=== PATIENT | female | born 1955 | race Caucasian/White ===

== ENCOUNTER 2017-01-19 13:07 | Emergency (ER) | payer MEDICAID ==
--- NOTE | 2017-01-19 14:17 | EDM.PDOC ---
ED UPPER BACK/NECK PAIN/INJURY - General Chief Complaint: Back Pain or Injury Stated Complaint: SOB/RIGHT SIDE PAIN Time Seen by Provider: 01/19/17 13:14 Source of Information: Reports: Patient, RN notes reviewed - History of Present Illness INITIAL COMMENTS - FREE TEXT/NARRATIVE: 61 year old female comes in with back pain, L chest wall pain, dyspnea. Hx of COPD and chronic low back pain. More short of breath than usual the last few days. Has had increased pain L upper back and L chest wall worse with motion and with coughing. Not coughing more than usual, no fever or chills. Has rods in her back with hx of fusion many vertebrae of her thoracic spine. No recent fall or injury. - Related Data Allergies/ADRs: Allergies Allergy/AdvReac Type Severity Reaction Status Date / Time codeine AdvReac Vomiting Verified 09/13/15 13:05 Home Meds: Home Meds Albutero Inhaler. 2 puff INH ASDIRECTED PRN 02/28/14 [History] Metoprolol Succinate [Toprol XL] 50 mg PO BID 02/28/14 [History] Albuterol [Proventil Neb Soln] 2.5 mg NEB Q3H 07/12/15 [History] Zolpidem Tartrate [Ambien] 5 mg PO Q2D 07/12/15 [History] Albuterol/Ipratropium [DuoNeb 3.0-0.5 MG/3 ML] 3 ml NEB QID PRN #1 box 09/13/15 [Rx] Budesonide/Formoterol [Symbicort 160-4.5 MCG] 2 puff INH BID 01/19/17 [History] Past Medical History Cardiovascular History: Reports: Hypertension Respiratory History: Reports: Asthma, COPD Other Musculoskeletal History: Scoliosis, spinal fusion. - Past Surgical History Female Surgical History: Reports: Hysterectomy Social & Family History - Tobacco Use Smoking Status *Q: Current Every Day Smoker Years of Tobacco use: 45 Packs/Tins Daily: 0.7 - Caffeine Use Caffeine Use: Reports: Coffee, Soda, Tea - Alcohol Use Days Per Week of Alcohol Use: 0 - Recreational Drug Use Recreational Drug Use: No Drug Use in Last 12 Months: Yes Recreational Drug Type: Reports: Morphine, Oxycodone Recreational Drug Use Frequency: Daily ED ROS GENERAL - Review of Systems Review Of Systems: See Below Constitutional: Denies: fever, chills, diaphoresis HEENT: Denies: Sinus problem, Throat pain Respiratory: Reports: Shortness of Breath, Cough, Sputum (scant). Denies: Pleuritic Chest Pain, Hemoptysis Cardiovascular: Reports: Chest pain (L chest) GI/Abdominal: Denies: Abdominal pain, Nausea, Vomiting Musculoskeletal: Reports: other (chronic back pain). Denies: shoulder pain, arm pain Skin: Reports: no symptoms Neurological: Reports: No Symptoms ED EXAM, UPPER BACK/NECK PAIN - Physical Exam Exam: See Below General Appearance: alert, no apparent distress Eye Exam: bilateral eye: PERRL Nose Exam: normal inspection Throat/Mouth Exam: Normal inspection, Normal oropharynx Head Exam: atraumatic Neck Exam: full range of motion, other (no JVD) Cardiovascular/Respiratory: regular rate, rhythm. No: rales, rhonchi, accessory muscle use, wheezing GI/Abdominal: soft, non tender Back Exam: paraspinal tenderness (L mid back, no bruising or swelling), other ( also tender L lateral chest wall, no bruising or swelling present). No: vertebral tenderness Extremities: No: leg pain, redness Neurologic: no motor/sensory deficits Course - Vital Signs Last Recorded V/S: Last Vital Signs Temp 98.4 F 01/19/17 13:19 Pulse 91 01/19/17 13:19 Resp 20 01/19/17 13:19 BP 156/93 H 01/19/17 13:19 Pulse Ox 96 01/19/17 14:29 - Orders/Labs/Meds Orders: Active Orders 24 hr Category Date Time Status RT Aerosol Therapy [RC] ASDIRECTED Care 01/19/17 14:29 Active Ribs 2V w Chest Lt [CR] Stat Exams 01/19/17 13:44 Taken Thoracic Spine 2V [CR] Stat Exams 01/19/17 13:44 Taken Meds: Medications Discontinued Medications Generic Name Dose Route Start Last Admin Trade Name Freq PRN Reason Stop Dose Admin Albuterol 2.5 mg 01/19/17 14:29 01/19/17 14:39 Proventil Neb Soln NEB 01/19/17 14:30 2.5 mg ONETIME ONE Administration - Re-Assessments/Exams Free Text/Narrative Re-Assessment/Exam: 03/29/17 14:52 X rays of back show hardware present, severe scoliosis,osteoprosis, degenerative disease, no obvious fx, lungs are clear, no visible rib fx Departure - Departure Time of Disposition: 14:38 Disposition: Home, Self-Care 01 Condition: fair Clinical Impression: Chest wall pain Dyspnea Qualifiers: Dyspnea type: dyspnea on exertion Qualified Code(s): R06.09 - Other forms of dyspnea Back pain Qualifiers: Back pain location: thoracic back pain Chronicity: chronic Back pain laterality : midline Qualified Code(s): M54.6 - Pain in thoracic spine Referrals: Sumeet Garcia Jr, MD [Primary Care Provider] - Forms: ED Department Discharge Additional Instructions: rest back, no heavy lifting, alternate heat and ice as needed, tylenol 2 to 3 times daily as needed, Follow up clinic if not much better within 3 to 5 days as expected, return to ED as needed. - My Orders Last 24 Hours: My Active Orders 01/19/17 13:44 Ribs 2V w Chest Lt [CR] Stat Thoracic Spine 2V [CR] Stat 01/19/17 14:29 RT Aerosol Therapy [RC] ASDIRECTED - Assessment/Plan Last 24 Hours: My Active Orders 01/19/17 13:44 Ribs 2V w Chest Lt [CR] Stat Thoracic Spine 2V [CR] Stat 01/19/17 14:29 RT Aerosol Therapy [RC] ASDIRECTED
[2017-01-19] MEDS ORDERED: Albuterol 0.083% 2.5 MG/3 ML Neb Soln NEB ONE (14:29)
[2017-01-19 14:55] VITALS: BP 155/101
--- NOTE | 2017-01-19 15:53 | CR ---
Chest and left ribs: Frontal view of the chest was obtained as well as 3 additional views of the left ribs. Comparison: Previous chest x-ray of 09/13/15. Spinal fixation rods are seen. Scoliosis is present within the spine. Heart size is within normal limits. Tortuous thoracic aorta is seen. Lungs are clear. Bony structures are somewhat osteopenic. No discrete fracture or other left sided rib abnormality is appreciated. Impression: 1. Incidental findings. Nothing acute is seen. 2. No discrete left-sided rib abnormality is appreciated. Nondisplaced fracture could easily be missed. Diagnostic code #2
--- NOTE | 2017-01-19 15:53 | CR ---
Thoracic spine: AP and lateral views of the thoracic spine were obtained. Comparison: No previous thoracic spine study, study is compared to lateral chest x-ray and AP chest x-ray of 09/13/15. Scoliosis present within the spine. Orthopedic hardware is seen within the thoracic spine. Compression deformity is noted within the lower thoracic spine which is felt to be old. Nothing acute is appreciated. Impression: 1. Findings as described above. No appreciable change is seen when compared to prior chest x-ray of 09/13/15. Diagnostic code #2
== END 2017-01-19 14:50 | disposition home or self-care (01) ==
LOC: JD.ED 13:07
DX: R07.89 Other chest pain (principal); R06.09 Other forms of dyspnea; M54.6 Pain in thoracic spine; Z88.8 Allergy status to other drugs, medicaments and biological substances; Z79.899 Other long term (current) drug therapy; J44.9 Chronic obstructive pulmonary disease, unspecified; J45.909 Unspecified asthma, uncomplicated; I10 Essential (primary) hypertension; F17.200 Nicotine dependence, unspecified, uncomplicated
CPT/HCPCS: 71101-26-LT; 71101-LT; 72070; 72070-26; 94664; 99283; 99285-25

== ENCOUNTER 2018-04-01 00:45 | Emergency (ER) | payer MEDICAID ==
[2018-04-01 01:17] VITALS: BP 150/71
[2018-04-01] MEDS ORDERED: Albuterol/Ipratropium 3.0-0.5 MG/3 ML Neb Soln NEB ONE (03:01)
--- NOTE | 2018-04-01 03:03 | EDM.PDOC ---
ED HPI GENERAL MEDICAL PROBLEM - General Chief Complaint: Respiratory Problem Stated Complaint: COPD BREATHING ISSUES RELATED TOO AND MIGRAIN Time Seen by Provider: 04/01/18 02:42 Source of Information: Reports: Patient, Old Records History Limitations: Reports: No Limitations - History of Present Illness INITIAL COMMENTS - FREE TEXT/NARRATIVE: The patient states that she has COPD and has had shortness of breath on and off for 9 years, but that it has been worse over the past few years. She does not require home oxygen, but she does have a home nebulizer machine. She usually takes 6-8 albuterol treatments per day, as needed for shortness of breath. She states that she is often wheezing, including now, here, in the ED. She reports a dry cough that is chronic. No recent fever. No recent chest pain or palpitations. No recent nausea, vomiting, constipation, or diarrhea. The patient states that she came to the ED because she believes that hour nebulized treatments work better than hers at home. The patient states that her PCP is tawana Beaulieu, who she saw this past Tuesday , 03/29/2018. headache Pain Score (Numeric/FACES): 6 - Related Data Allergies Allergy/AdvReac Type Severity Reaction Status Date / Time codeine AdvReac Vomiting Verified 04/01/18 00:56 Home Meds: Home Meds Metoprolol Succinate [Toprol XL] 50 mg PO BID 02/28/14 [History] Albuterol [Proventil Neb Soln] 2.5 mg NEB Q3H 07/12/15 [History] Albuterol/Ipratropium [DuoNeb 3.0-0.5 MG/3 ML] 3 ml NEB QID PRN #1 box 09/13/15 [Rx] Budesonide/Formoterol [Symbicort 160-4.5 MCG] 2 puff INH BID 01/19/17 [History] Acetaminophen/oxyCODONE [Percocet 325-5 MG] 1 each PO QID 04/01/18 [History] Past Medical History Cardiovascular History: Reports: Hypertension Respiratory History: Reports: Asthma, COPD Other Musculoskeletal History: Scoliosis, spinal fusion. Neurological History: Reports: Headaches, Chronic Psychiatric History: Reports: Addiction - Past Surgical History Female Surgical History: Reports: Hysterectomy Social & Family History - Family History Family Medical History: Noncontributory - Tobacco Use Smoking Status *Q: Current Every Day Smoker Years of Tobacco use: 46 Packs/Tins Daily: 0.5 Packs/Tins Daily Comment: Down from 1 ppd - Caffeine Use Caffeine Use: Reports: Coffee - Alcohol Use Alcohol Use History: Yes Date/Time of Last Drink Comment: Sober since early - Recreational Drug Use Recreational Drug Use: Yes Drug Use in Last 12 Months: Yes Recreational Drug Type: Reports: Other (see below) (Opioids) - Living Situation & Occupation Living situation: Reports: , Alone Occupation: Unemployed ED ROS GENERAL - Review of Systems Review Of Systems: ROS reveals no pertinent complaints other than HPI. ED EXAM, GENERAL - Physical Exam Exam: See Below Exam Limited By: No Limitations General Appearance: Alert, WD/WN, No Apparent Distress Eye Exam: Bilateral Eye: Normal Inspection Ears: Normal External Exam, Hearing Grossly Normal Nose: Normal Inspection, No Blood Throat/Mouth: Normal Inspection, Normal Lips, Normal Voice, No Airway Compromise Head: Atraumatic, Normocephalic Neck: Normal Inspection, Full Range of Motion Respiratory/Chest: No Respiratory Distress, No Accessory Muscle Use, Decreased Breath Sounds, Wheezing (faint), Other (Overall fair air movement). No: Crackles, Rhonchi Cardiovascular: Normal Peripheral Pulses, Regular Rate, Rhythm, No Gallop, No JVD, No Murmur, No Rub Peripheral Pulses: 3+: Radial (L), Radial (R) GI/Abdominal: Normal Bowel Sounds, Soft, Non-Tender, No Organomegaly, No Distention, No Abnormal Bruit, No Mass, Other (Obese) (Female) Exam: Deferred Rectal (Female) Exam: Deferred Back Exam: Other (Scoliosis) Extremities: Normal Inspection, Normal Range of Motion, Normal Capillary Refill Neurological: Alert, Oriented, Normal Cognition, No Motor/Sensory Deficits Psychiatric: Normal Affect Skin Exam: Warm, Dry, Intact, Normal Color, No Rash Course - Vital Signs Last Recorded V/S: Last Vital Signs Temp 37.3 C 04/01/18 01:16 Pulse 73 04/01/18 01:16 Resp 18 04/01/18 01:16 BP 150/71 H 04/01/18 01:16 Pulse Ox 95 04/01/18 03:08 - Orders/Labs/Meds Orders: Active Orders 24 hr Category Date Time Status RT Aerosol Therapy [RC] ASDIRECTED Care 04/01/18 03:01 Active Meds: Medications Discontinued Medications Generic Name Dose Route Start Last Admin Trade Name Gee PRN Reason Stop Dose Admin Albuterol/Ipratropium 3 ml 04/01/18 03:01 04/01/18 03:06 Duoneb 3.0-0.5 Mg/3 Ml NEB 04/01/18 03:02 3 ml ONETIME ONE Administration - Re-Assessments/Exams Free Text/Narrative Re-Assessment/Exam: 04/01/18 03:02 The patient is here stating that she wants a neb treatment, and that our neb treatments are better than her neb treatments at home. I'm not sure that that is true, but I did order a DuoNeb. The patient also asked for something for pain, and told Kanika MCGOWAN that she was out of her Percocet. The patient has a long and well-documented history of opioid abuse, and I am suspicious that her main reason for coming to the ED is to seek pain medication. 04/01/18 03:39 I was informed by Kanika MCGOWAN that the patient is feeling better following her neb treatment, and would like to go home. I listened to her lungs, which found no different to me than prior to her neb treatment. The patient is somewhat chagrined that she did not get a pain shot. I explained to the patient that she has a well-documented history of opioid abuse, and that there is no indication for a narcotic injection at this time. The patient stated that she had gone to rehabilitation, and was over that problem, but then said that that was the reason that she came to the ER. She then left the ED without waiting for discharge papers. Departure - Departure Time of Disposition: 03:41 Disposition: Home, Self-Care 01 Condition: Good Clinical Impression: Drug-seeking behavior - Discharge Information Referrals: Sumeet Garcia Jr, MD [Primary Care Provider] - Forms: ED Department Discharge - My Orders Last 24 Hours: My Active Orders 04/01/18 03:01 RT Aerosol Therapy [RC] ASDIRECTED - Assessment/Plan Last 24 Hours: My Active Orders 04/01/18 03:01 RT Aerosol Therapy [RC] ASDIRECTED
== END 2018-04-01 03:40 | disposition home or self-care (01) ==
LOC: JD.ED 00:45
DX: J44.9 Chronic obstructive pulmonary disease, unspecified (principal); F17.210 Nicotine dependence, cigarettes, uncomplicated; Z79.899 Other long term (current) drug therapy; Z76.5 Malingerer [conscious simulation]
CPT/HCPCS: 94640; 99283; 99285-25

== ENCOUNTER 2019-07-05 21:16 | Emergency (ER) | payer MEDICAID ==
[2019-07-05 21:24] VITALS: BP 181/129; PULSE 95
[2019-07-05] MEDS ORDERED: Ketorolac 30 MG/ML SDV IVPUSH ONE (21:32)
[2019-07-05] MEDS ORDERED: Metoclopramide 10 MG/2 ML SDV IVPUSH ONE (21:32)
[2019-07-05] MEDS ORDERED: diphenhydrAMINE 50 MG/ML SDV IVPUSH ONE (21:32)
[2019-07-05] MEDS ORDERED: Sodium Chloride 0.9% 10 ML Syringe FLUSH PRN (21:32)
[2019-07-05] MEDS ORDERED: Sodium Chloride 0.9% 1,000 ML IV SCH (21:45)
--- NOTE | 2019-07-05 22:12 | EDM.PDOC ---
ED HPI GENERAL MEDICAL PROBLEM - General Chief Complaint: Headache Stated Complaint: HEADACHE Time Seen by Provider: 07/05/19 21:28 Source of Information: Reports: Patient, RN Notes Reviewed History Limitations: Reports: No Limitations - History of Present Illness INITIAL COMMENTS - FREE TEXT/NARRATIVE: Patient is a 63-year-old female who presents to the ED for evaluation of a headache. The patient states she has had this headache for about 1-1/2 days. She states that the pain is worse tonight, and also has some associated neck pain with this. Patient did try taking a half tablet of her Percocet for the pain but this has not provided much relief. She states this usually does provide relief. She states that the headache is typical for her, and she notes that sometimes they can just go away with sleep. She was seen at her doctor's office today for her blood pressure and had refills, but states they did not do anything for her headache. Patient denies any sinus congestion, cough, or cold. She further denies any nausea/vomiting/diarrhea, chest pain, or shortness of breath. Headache Pain Score (Numeric/FACES): 8 - Related Data Allergies Allergy/AdvReac Type Severity Reaction Status Date / Time codeine AdvReac Vomiting Verified 07/05/19 21:24 Home Meds: Home Meds Metoprolol Succinate [Toprol XL] 50 mg PO BID 02/28/14 [History] Albuterol [Proventil Neb Soln] 2.5 mg NEB Q3H 07/12/15 [History] Budesonide/Formoterol [Symbicort 160-4.5 MCG] 2 puff INH BID 01/19/17 [History] ALPRAZolam [Xanax] 0.5 mg PO DAILY 06/03/19 [History] Acetaminophen/oxyCODONE [Percocet 325-5 MG] 1 tab PO Q6H PRN #4 tab 06/04/19 [Rx ] Past Medical History HEENT History: Reports: Impaired Vision Cardiovascular History: Reports: Hypertension Respiratory History: Reports: Asthma, COPD Gastrointestinal History: Reports: None [employer] MANAGER History: Reports: None Musculoskeletal History: Reports: Back Pain, Chronic Other Musculoskeletal History: Scoliosis, spinal fusion. Neurological History: Reports: Headaches, Chronic, Migraines Psychiatric History: Reports: Addiction, Anxiety Endocrine/Metabolic History: Reports: None Hematologic History: Reports: None Immunologic History: Reports: None Oncologic (Cancer) History: Reports: None Dermatologic History: Reports: None - Infectious Disease History Infectious Disease History: Reports: None - Past Surgical History Female Surgical History: Reports: Hysterectomy Neurological Surgical History: Reports: Scoliosis, Spinal Fusion Social & Family History - Family History Family Medical History: Noncontributory - Tobacco Use Smoking Status *Q: Current Every Day Smoker Years of Tobacco use: 45 Packs/Tins Daily: 0.5 - Caffeine Use Caffeine Use: Reports: Coffee - Recreational Drug Use Recreational Drug Use: No - Living Situation & Occupation Living situation: Reports: , Alone Occupation: Unemployed ED ROS GENERAL - Review of Systems Review Of Systems: See Below Constitutional: Denies: Fever, Chills, Weakness HEENT: Reports: No Symptoms Respiratory: Denies: Shortness of Breath Cardiovascular: Denies: Chest Pain Endocrine: Reports: No Symptoms GI/Abdominal: Denies: Nausea, Vomiting : Reports: No Symptoms Musculoskeletal: Reports: Neck Pain Skin: Reports: No Symptoms Neurological: Reports: Headache Psychiatric: Reports: No Symptoms Hematologic/Lymphatic: Reports: No Symptoms - Physical Exam Exam: See Below Exam Limited By: No Limitations General Appearance: Alert, WD/WN, No Apparent Distress (pt appears to be uncomfortable on initial exam. She is in a darkened room) Eye Exam: Bilateral Eye: EOMI, Normal Inspection, PERRL Throat/Mouth: Normal Inspection, Normal Lips, Normal Teeth, Normal Gums, Normal Oropharynx, Normal Voice, No Airway Compromise Head Exam: Atraumatic, Normocephalic Neck: Normal Inspection, Supple, Non-Tender, Full Range of Motion Respiratory/Chest: No Respiratory Distress, Lungs Clear, Normal Breath Sounds, No Accessory Muscle Use, Chest Non-Tender Cardiovascular: Normal Peripheral Pulses, Regular Rate, Rhythm, No Murmur GI/Abdominal: Normal Bowel Sounds, Soft, Non-Tender, No Distention, No Mass Neuro Exam (Abbreviated): Alert, Oriented, Normal Cognition, No Motor/Sensory Deficits Extremities: Normal Inspection, Normal Capillary Refill Psychiatric: Normal Affect, Normal Mood Skin Exam: Warm, Dry, Intact, Normal Color, No Rash Course - Vital Signs Last Recorded V/S: Last Vital Signs Temp 97.6 F 07/05/19 21:21 Pulse 95 07/05/19 21:21 Resp 16 07/05/19 21:21 BP 181/129 H 07/05/19 21:21 Pulse Ox 97 07/05/19 21:21 - Orders/Labs/Meds Orders: Active Orders 24 hr Category Date Time Status Peripheral IV Care [RC] . DIRECTED Care 07/05/19 21:32 Active Sodium Chloride 0.9% [Normal Saline] 1,000 ml Med 07/05/19 21:45 Active IV ASDIRECTED Sodium Chloride 0.9% [Saline Flush] Med 07/05/19 21:32 Active 10 ml FLUSH ASDIRECTED PRN Peripheral IV Insertion Adult [OM.PC] Routine Oth 07/05/19 21:32 Ordered Medication Orders Sodium Chloride (Normal Saline) 1,000 mls @ 125 mls/hr IV ASDIRECTED NASH Last Admin: 07/05/19 21:46 Dose: 125 mls/hr Sodium Chloride (Saline Flush) 10 ml FLUSH ASDIRECTED PRN PRN Reason: Keep Vein Open Last Admin: 07/05/19 21:49 Dose: 10 ml Meds: Medications Generic Name Dose Route Start Last Admin Trade Name Freq PRN Reason Stop Dose Admin Sodium Chloride 1,000 mls @ 125 mls/hr 07/05/19 21:45 07/05/19 21:46 Normal Saline IV 125 mls/hr ASDIRECTED NASH Administration Sodium Chloride 10 ml 07/05/19 21:32 07/05/19 21:49 Saline Flush FLUSH 10 ml ASDIRECTED PRN Administration Keep Vein Open Discontinued Medications Generic Name Dose Route Start Last Admin Trade Name Freq PRN Reason Stop Dose Admin Diphenhydramine HCl 25 mg 07/05/19 21:32 07/05/19 21:47 Benadryl IVPUSH 07/05/19 21:33 25 mg ONETIME ONE Administration Ketorolac Tromethamine 30 mg 07/05/19 21:32 07/05/19 21:48 Toradol IVPUSH 07/05/19 21:33 30 mg ONETIME ONE Administration Metoclopramide HCl 10 mg 07/05/19 21:32 07/05/19 21:46 Reglan IVPUSH 07/05/19 21:33 10 mg ONETIME ONE Administration - Re-Assessments/Exams Free Text/Narrative Re-Assessment/Exam: 07/05/19 22:19 Patient presents to the ED for a headache, I did give her 30 mg IV Toradol, 25 mg Benadryl, and 10 mg Reglan for initial management. Patient states she's had no relief from this, I did review her old records and she does have chronic daily narcotic use, I will provide her with 1 mg Dilaudid for further pain relief and discharge her home. She states she will be able to get her Percocet refilled from Dr. Garcia tomorrow. Departure - Departure Time of Disposition: 22:21 Disposition: Home, Self-Care 01 Condition: Fair Clinical Impression: Headache around the eyes - Discharge Information *PRESCRIPTION DRUG MONITORING PROGRAM REVIEWED*: No *COPY OF PRESCRIPTION DRUG MONITORING REPORT IN PATIENT RONNI: No Instructions: General Headache Without Cause, [id number] Referrals: Sumeet Garcia Jr, MD [Primary Care Provider] - Forms: ED Department Discharge Additional Instructions: You were evaluated in the ED for your headache. You were given a combination of medications and IV fluid for management. This did seem to provide you pretty good relief of your symptoms. Recommend that you go home and rest in a quiet darkened room. Try also to keep well hydrated. Please return to the ED if your symptoms should change or worsen. - My Orders Last 24 Hours: My Active Orders 07/05/19 21:32 Peripheral IV Care [RC] . DIRECTED Sodium Chloride 0.9% [Saline Flush] 10 ml FLUSH ASDIRECTED PRN Peripheral IV Insertion Adult [OM.PC] Routine 07/05/19 21:45 Sodium Chloride 0.9% [Normal Saline] 1,000 ml IV ASDIRECTED - Assessment/Plan Last 24 Hours: My Active Orders 07/05/19 21:32 Peripheral IV Care [RC] . DIRECTED Sodium Chloride 0.9% [Saline Flush] 10 ml FLUSH ASDIRECTED PRN Peripheral IV Insertion Adult [OM.PC] Routine 07/05/19 21:45 Sodium Chloride 0.9% [Normal Saline] 1,000 ml IV ASDIRECTED
[2019-07-05] MEDS ORDERED: HYDROmorphone 1 MG/ML Syringe IVPUSH ONE (22:20)
== END 2019-07-05 22:51 | disposition home or self-care (01) ==
LOC: JD.ED 21:16
DX: R51 Headache (principal); I10 Essential (primary) hypertension; F17.210 Nicotine dependence, cigarettes, uncomplicated; Z88.5 Allergy status to narcotic agent
CPT/HCPCS: 96361; 96374; 96375; 99283; J1170; J1200; J1885; J2765; J7040; 99284

== ENCOUNTER 2019-07-30 15:14 | Emergency (ER) | payer MEDICAID ==
[2019-07-30 15:44] VITALS: BP 183/107; PULSE 98
[2019-07-30] MEDS ORDERED: HYDROmorphone 1 MG/ML Syringe IM ONE (16:16)
[2019-07-30] MEDS ORDERED: Ketorolac 60 MG/2 ML SDV IM ONE (16:16)
--- NOTE | 2019-07-30 16:22 | EDM.PDOC ---
ED HPI GENERAL MEDICAL PROBLEM - General Chief Complaint: Headache Stated Complaint: HEADACHE Time Seen by Provider: 07/30/19 15:54 Source of Information: Reports: Patient History Limitations: Reports: No Limitations - History of Present Illness INITIAL COMMENTS - FREE TEXT/NARRATIVE: The patient presents with head and neck pain. This started yesterday. She has a bad neck with multiple surgeries. She is out of her percocet. She sees Dr Garcia on . She has no fever, chills, cough, chest pain or shortness of breath. She has no numbness or weakness. Onset: Gradual Duration: Day(s): (Yesterday) Location: Reports: Head, Neck Quality: Reports: Sharp Severity: Severe Improves with: Reports: None Worsens with: Reports: None Associated Symptoms: Reports: Headaches. Denies: Chest Pain, Cough, Fever/ Chills, Nausea/Vomiting, Shortness of Breath, Weakness Headache Pain Score (Numeric/FACES): 8 - Related Data Allergies Allergy/AdvReac Type Severity Reaction Status Date / Time codeine AdvReac Vomiting Verified 07/30/19 15:44 Home Meds: Home Meds Metoprolol Succinate [Toprol XL] 50 mg PO BID 02/28/14 [History] Albuterol [Proventil Neb Soln] 2.5 mg NEB Q3H 07/12/15 [History] Budesonide/Formoterol [Symbicort 160-4.5 MCG] 2 puff INH BID 01/19/17 [History] ALPRAZolam [Xanax] 0.5 mg PO DAILY 06/03/19 [History] Acetaminophen/oxyCODONE [Percocet 325-5 MG] 1 tab PO Q6H PRN #4 tab 06/04/19 [Rx ] Past Medical History HEENT History: Reports: Impaired Vision Cardiovascular History: Reports: Hypertension Respiratory History: Reports: Asthma, COPD Gastrointestinal History: Reports: None 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 Neurological History: Reports: Headaches, Chronic, Migraines Psychiatric History: Reports: Addiction, Anxiety Endocrine/Metabolic History: Reports: None Hematologic History: Reports: None Immunologic History: Reports: None Oncologic (Cancer) History: Reports: None Dermatologic History: Reports: None - Infectious Disease History Infectious Disease History: Reports: None - Past Surgical History Female Surgical History: Reports: Hysterectomy Neurological Surgical History: Reports: Scoliosis, Spinal Fusion Social & Family History - Family History Family Medical History: Noncontributory - Tobacco Use Smoking Status *Q: Never Smoker - Caffeine Use Caffeine Use: Reports: None - Recreational Drug Use Recreational Drug Use: No - Living Situation & Occupation Living situation: Reports: , Alone Occupation: Unemployed ED ROS GENERAL - Review of Systems Review Of Systems: See Below Constitutional: Reports: No Symptoms HEENT: Reports: No Symptoms Respiratory: Reports: No Symptoms Cardiovascular: Reports: No Symptoms Endocrine: Reports: No Symptoms GI/Abdominal: Reports: No Symptoms : Reports: No Symptoms Musculoskeletal: Reports: Neck Pain Neurological: Reports: Headache - Physical Exam Exam: See Below Exam Limited By: No Limitations General Appearance: Alert, No Apparent Distress Ears: Normal External Exam Nose: Normal Inspection Head Exam: Atraumatic, Normocephalic Neck: Supple, Tender Lateral, Tender Midline Respiratory/Chest: No Respiratory Distress, Lungs Clear, Normal Breath Sounds Cardiovascular: Regular Rate, Rhythm, No Edema, No Murmur GI/Abdominal: Soft, Non-Tender, No Organomegaly, No Mass Neuro Exam (Abbreviated): Alert, Oriented, No Motor/Sensory Deficits Course - Vital Signs Last Recorded V/S: Last Vital Signs Temp 98.9 F 07/30/19 15:42 Pulse 98 07/30/19 15:42 Resp 20 07/30/19 15:42 BP 183/107 H 07/30/19 15:42 Pulse Ox 94 L 07/30/19 15:42 - Orders/Labs/Meds Orders: Active Orders 24 hr Category Date Time Status HYDROmorphone [Dilaudid] Med 07/30/19 16:16 Once 1 mg IM ONETIME ONE Ketorolac [Toradol] Med 07/30/19 16:16 Once 60 mg IM ONETIME ONE - Re-Assessments/Exams Free Text/Narrative Re-Assessment/Exam: 07/30/19 16:19 I ordered toradol and dilaudid shots and I will discharge her home. Departure - Departure Time of Disposition: 16:20 Disposition: Home, Self-Care 01 Condition: Good Clinical Impression: Neck pain Headache Qualifiers: Headache type: tension-type Headache chronicity pattern: acute headache Intractability: not intractable Qualified Code(s): G44.209 - Tension-type headache, unspecified, not intractable - Discharge Information *PRESCRIPTION DRUG MONITORING PROGRAM REVIEWED*: No *COPY OF PRESCRIPTION DRUG MONITORING REPORT IN PATIENT RONNI: No Referrals: Sumeet Garcia Jr, MD [Primary Care Provider] - 3 Days Additional Instructions: Take your medication as prescribed. Follow up with Dr Garcia. Please return if you are worse. - My Orders Last 24 Hours: My Active Orders 07/30/19 16:16 HYDROmorphone [Dilaudid] 1 mg IM ONETIME ONE Ketorolac [Toradol] 60 mg IM ONETIME ONE - Assessment/Plan Last 24 Hours: My Active Orders 07/30/19 16:16 HYDROmorphone [Dilaudid] 1 mg IM ONETIME ONE Ketorolac [Toradol] 60 mg IM ONETIME ONE
== END 2019-07-30 17:00 | disposition home or self-care (01) ==
LOC: JD.ED 15:14
DX: M54.2 Cervicalgia (principal); R51 Headache; I10 Essential (primary) hypertension; J44.9 Chronic obstructive pulmonary disease, unspecified; F41.9 Anxiety disorder, unspecified; Z88.5 Allergy status to narcotic agent; Z79.899 Other long term (current) drug therapy; Z79.51 Long term (current) use of inhaled steroids
CPT/HCPCS: 96372; 99283; J1170; J1885

== ENCOUNTER 2019-08-27 14:17 | Emergency (ER) | payer MEDICAID ==
[2019-08-27 14:19] VITALS: BP 161/101; PULSE 85
[2019-08-27] MEDS ORDERED: HYDROmorphone 1 MG/ML Syringe IM ONE (14:41)
[2019-08-27] MEDS ORDERED: Ketorolac 60 MG/2 ML SDV IM ONE (14:41)
--- NOTE | 2019-08-27 14:50 | EDM.PDOC ---
ED HPI GENERAL MEDICAL PROBLEM - General Chief Complaint: Back Pain or Injury Stated Complaint: [facility] Time Seen by Provider: 08/27/19 14:19 Source of Information: Reports: Patient History Limitations: Reports: No Limitations - History of Present Illness INITIAL COMMENTS - FREE TEXT/NARRATIVE: The patient presents by [facility] for a headache and low back pain. She has chronic back pain with scoliosis with a few surgeries. She has no fever or chills. She has no numbness or weakness. She say she is out of her percocet. Onset: Gradual Duration: Day(s): Quality: Reports: Sharp Severity: Severe Improves with: Reports: Immobilization Worsens with: Reports: Movement Associated Symptoms: Reports: Headaches. Denies: Chest Pain, Cough, Fever/ Chills, Nausea/Vomiting, Shortness of Breath Back Pain Score (Numeric/FACES): 10 - Related Data Allergies Allergy/AdvReac Type Severity Reaction Status Date / Time codeine AdvReac Vomiting Verified 07/30/19 15:44 Home Meds: Home Meds Metoprolol Succinate [Toprol XL] 50 mg PO BID 02/28/14 [History] Albuterol [Proventil Neb Soln] 2.5 mg NEB Q3H 07/12/15 [History] Budesonide/Formoterol [Symbicort 160-4.5 MCG] 2 puff INH BID 01/19/17 [History] ALPRAZolam [Xanax] 0.5 mg PO DAILY 06/03/19 [History] oxyCODONE HCl/Acetaminophen [Percocet 5-325 mg Tablet] 1 - 2 each PO Q6HR PRN # 20 tablet 07/30/19 [Rx] Past Medical History HEENT History: Reports: Impaired Vision Cardiovascular History: Reports: Hypertension Respiratory History: Reports: Asthma, COPD Gastrointestinal History: Reports: None 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 Neurological History: Reports: Headaches, Chronic, Migraines Psychiatric History: Reports: Addiction, Anxiety Endocrine/Metabolic History: Reports: None Hematologic History: Reports: None Immunologic History: Reports: None Oncologic (Cancer) History: Reports: None Dermatologic History: Reports: None - Infectious Disease History Infectious Disease History: Reports: None - Past Surgical History Female Surgical History: Reports: Hysterectomy Neurological Surgical History: Reports: Scoliosis, Spinal Fusion Social & Family History - Family History Family Medical History: Noncontributory - Tobacco Use Smoking Status *Q: Current Every Day Smoker Years of Tobacco use: 40 Packs/Tins Daily: 1 - Caffeine Use Caffeine Use: Reports: Coffee, Soda - Recreational Drug Use Recreational Drug Use: No - Living Situation & Occupation Living situation: Reports: , Alone Occupation: Unemployed ED ROS GENERAL - Review of Systems Review Of Systems: See Below Constitutional: Reports: No Symptoms HEENT: Reports: No Symptoms Respiratory: Reports: No Symptoms Cardiovascular: Reports: No Symptoms Endocrine: Reports: No Symptoms GI/Abdominal: Reports: No Symptoms : Reports: No Symptoms Musculoskeletal: Reports: Back Pain Neurological: Reports: Headache ED EXAM,LOWER BACK PAIN/INJURY - Physical Exam Exam: See Below Exam Limited By: No Limitations General Appearance: Alert, No Apparent Distress Ears: Normal External Exam Nose: Normal Inspection Head: Atraumatic, Normocephalic Neck: Normal Inspection Respiratory/Chest: No Respiratory Distress, Lungs Clear, Normal Breath Sounds Cardiovascular: Regular Rate, Rhythm, No Edema, No Murmur GI/Abdominal: Soft, Non-Tender, No Organomegaly, No Mass Extremities: Normal Inspection Course - Vital Signs Last Recorded V/S: Last Vital Signs Temp 97.9 F 08/27/19 14:18 Pulse 85 08/27/19 14:18 Resp 20 08/27/19 14:18 BP 161/101 H 08/27/19 14:18 Pulse Ox 97 08/27/19 14:18 - Orders/Labs/Meds Meds: Medications Discontinued Medications Generic Name Dose Route Start Last Admin Trade Name Gee PRN Reason Stop Dose Admin Hydromorphone HCl 1 mg 08/27/19 14:41 Dilaudid IM 08/27/19 14:42 ONETIME ONE Ketorolac Tromethamine 60 mg 08/27/19 14:41 Toradol IM 08/27/19 14:42 ONETIME ONE - Re-Assessments/Exams Free Text/Narrative Re-Assessment/Exam: 08/27/19 14:52 I ordered a shot of dilaudid 1mg IM and toradol 60mg IM. I will discharge her home. Departure - Departure Time of Disposition: 14:55 Disposition: Home, Self-Care 01 Condition: Good Clinical Impression: Chronic back pain Headache Qualifiers: Headache type: tension-type Headache chronicity pattern: acute headache Intractability: not intractable Qualified Code(s): G44.209 - Tension-type headache, unspecified, not intractable - Discharge Information *PRESCRIPTION DRUG MONITORING PROGRAM REVIEWED*: No *COPY OF PRESCRIPTION DRUG MONITORING REPORT IN PATIENT RONNI: No Referrals: Sumeet Garcia Jr, MD [Primary Care Provider] - 1 Week Additional Instructions: Go home and take your medication as prescribed. Follow up with your doctor.
[2019-08-27] MEDS ORDERED: Albuterol/Ipratropium 3.0-0.5 MG/3 ML Neb Soln NEB ONE (15:10)
== END 2019-08-27 15:27 | disposition home or self-care (01) ==
LOC: SUPCPDRO 14:17 → JD.ED 14:17
DX: M54.5 Low back pain (principal); G89.29 Other chronic pain; G44.209 Tension-type headache, unspecified, not intractable; I10 Essential (primary) hypertension; J44.9 Chronic obstructive pulmonary disease, unspecified; F41.9 Anxiety disorder, unspecified; F17.210 Nicotine dependence, cigarettes, uncomplicated; Z79.51 Long term (current) use of inhaled steroids; Z79.899 Other long term (current) drug therapy; Z88.5 Allergy status to narcotic agent
CPT/HCPCS: 94640; 96372; 99284; J1170; J1885; 99283; J7620-GY

== ENCOUNTER 2019-10-26 02:23 | Emergency (ER) | payer MEDICAID ==
[2019-10-26 02:31] VITALS: BP 147/89; PULSE 81
--- NOTE | 2019-10-26 02:42 | EDM.PDOC ---
ED HPI GENERAL MEDICAL PROBLEM - General Chief Complaint: Drug or Alcohol Abuse Stated Complaint: [facility] Time Seen by Provider: 10/26/19 02:32 - History of Present Illness INITIAL COMMENTS - FREE TEXT/NARRATIVE: 64-year-old female presents the emergency room with a headache and neck pain. Patient's been out of her Percocet for a day now. She is scheduled to see her primary care physician at 830 this morning to get her refills. The patient is been under more stress than normal. She also takes Xanax 0.5 mg she is taken 3 of these over the last 24 hours. Patient has long history of back and neck problems relating to severe scoliosis. Back Pain Score (Numeric/FACES): 10 - Related Data Allergies Allergy/AdvReac Type Severity Reaction Status Date / Time codeine AdvReac Vomiting Verified 10/26/19 02:27 Home Meds: Home Meds Metoprolol Succinate [Toprol XL] 50 mg PO BID 02/28/14 [History] Albuterol [Proventil Neb Soln] 2.5 mg NEB Q3H 07/12/15 [History] Budesonide/Formoterol [Symbicort 160-4.5 MCG] 2 puff INH BID 01/19/17 [History] ALPRAZolam [Xanax] 0.5 mg PO DAILY 06/03/19 [History] oxyCODONE HCl/Acetaminophen [Percocet 5-325 mg Tablet] 1 - 2 each PO Q6HR PRN # 20 tablet 07/30/19 [Rx] Past Medical History HEENT History: Reports: Impaired Vision Cardiovascular History: Reports: Hypertension Respiratory History: Reports: Asthma, COPD Gastrointestinal History: Reports: None 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 Neurological History: Reports: Headaches, Chronic, Migraines Psychiatric History: Reports: Addiction, Anxiety Endocrine/Metabolic History: Reports: None Hematologic History: Reports: None Immunologic History: Reports: None Oncologic (Cancer) History: Reports: None Dermatologic History: Reports: None - Infectious Disease History Infectious Disease History: Reports: None - Past Surgical History Female Surgical History: Reports: Hysterectomy Neurological Surgical History: Reports: Scoliosis, Spinal Fusion Social & Family History - Family History Family Medical History: Noncontributory - Caffeine Use Caffeine Use: Reports: Coffee, Soda - Living Situation & Occupation Living situation: Reports: , Alone Occupation: Unemployed ED ROS GENERAL - Review of Systems Review Of Systems: See Below Constitutional: Reports: No Symptoms HEENT: Reports: No Symptoms Respiratory: Reports: No Symptoms Cardiovascular: Reports: No Symptoms Endocrine: Reports: No Symptoms GI/Abdominal: Reports: No Symptoms Musculoskeletal: Reports: Neck Pain, Back Pain Skin: Reports: No Symptoms Neurological: Reports: No Symptoms ED EXAM, GENERAL - Physical Exam Exam: See Below Exam Limited By: No Limitations General Appearance: Alert, No Apparent Distress Eye Exam: Bilateral Eye: Normal Inspection Head: Atraumatic, Normocephalic, Other (Tenderness at the base of her skull at the neck worse on the left side compared to the right this is consistent with the pain that brought her in) Neck: Other (She has significant spasm in the left paraspinous musculature if this seems to mimic the pain that brought her in). No: Lymphadenopathy (L), Lymphadenopathy (R), Tender Midline Respiratory/Chest: No Respiratory Distress, Lungs Clear, Normal Breath Sounds Cardiovascular: Regular Rate, Rhythm, No Edema, No Murmur Back Exam: Other. No: Vertebral Tenderness Extremities: Normal Inspection, No Pedal Edema Course - Vital Signs Last Recorded V/S: Last Vital Signs Temp 36.2 C 10/26/19 02:28 Pulse 81 10/26/19 02:28 Resp 18 10/26/19 02:28 BP 147/89 H 10/26/19 02:28 Pulse Ox 95 10/26/19 02:28 - Orders/Labs/Meds Meds: Medications Discontinued Medications Generic Name Dose Route Start Last Admin Trade Name Gee PRN Reason Stop Dose Admin Hydromorphone HCl 1 mg 10/26/19 02:45 10/26/19 02:52 Dilaudid IM 10/26/19 02:46 1 mg ONETIME ONE Administration - Re-Assessments/Exams Free Text/Narrative Re-Assessment/Exam: 10/26/19 03:31 Patient is doing much better. I had a long talk with the patient regarding why it is important to get all her medications for chronic pain from the same provider and from the same pharmacy and what most pain contract say and mentioned that it is not the emergency room's role to provide chronic pain medication. She voices understanding. Departure - Departure Time of Disposition: 03:32 Disposition: Admitted As Inpatient 66 Clinical Impression: Tension type headache, Chronic neck and back pain Clinical Impression: (Ruled Out): Chronic neck pain - Discharge Information Referrals: Sumeet Garcia Jr, MD [Primary Care Provider] - Additional Instructions: Return to the emergency room with any questions problems or worsening symptoms. Follow-up with your regular physician later today as scheduled. Remember the chronic pain management should only be done in the clinic. Sepsis Event Note - Evaluation Sepsis Screening Result: No Definite Risk - Focused Exam Vital Signs: Vital Signs Temp Pulse Resp BP Pulse Ox 10/26/19 02:28 36.2 C 81 18 147/89 H 95 Date Exam was Performed: 10/26/19 Time Exam was Performed: 03:31
[2019-10-26] MEDS ORDERED: HYDROmorphone 1 MG/ML Syringe IM ONE (02:45)
== END 2019-10-26 04:15 | disposition home or self-care (01) ==
LOC: SUPCPDRO 02:23 → JD.ED 02:23
DX: G44.209 Tension-type headache, unspecified, not intractable (principal); M54.2 Cervicalgia; M54.9 Dorsalgia, unspecified; G89.29 Other chronic pain; I10 Essential (primary) hypertension; J44.9 Chronic obstructive pulmonary disease, unspecified; F41.9 Anxiety disorder, unspecified; Z88.5 Allergy status to narcotic agent; Z79.899 Other long term (current) drug therapy
CPT/HCPCS: 96372; 99285; J1170; 99283

== ENCOUNTER 2019-12-04 11:20 | Emergency (ER) | payer MEDICAID ==
[2019-12-04] MEDS ORDERED: HYDROmorphone 1 MG/ML Syringe IM ONE (12:50)
--- NOTE | 2019-12-04 12:58 | EDM.PDOC ---
ED HPI GENERAL MEDICAL PROBLEM - General Chief Complaint: Respiratory Problem Stated Complaint: SOB,WHOLE PAIN HURTS Time Seen by Provider: 12/04/19 12:02 Source of Information: Reports: Patient, RN Notes Reviewed History Limitations: Reports: No Limitations - History of Present Illness INITIAL COMMENTS - FREE TEXT/NARRATIVE: Patient is a 64-year-old female who presents to the ED for the evaluation of a couple complaints. She states that she has chronic neck pain, and she normally takes Percocet 5/325, 4 times a day. She notes that she has a appointment with her primary care provider on Tuesday, and states she has subsequently run out of Percocet, as he gave her a smaller amount of pills this last month for some reason. She also states that she has a history of lung issues or COPD-like illness, and does not believe her neb machine is working appropriately as she does not think it is blowing out meds like it used to. She is going to take this to her doctor on Tuesday and have him give her a new one as well. She is complaining mostly of the same chronic neck pain, this is not different than her normal neck pain, her O2 sats are 97% on room air at this time, and she is not having any sort of respiratory distress at this time. Neck Pain Score (Numeric/FACES): 9 - Related Data Allergies Allergy/AdvReac Type Severity Reaction Status Date / Time codeine AdvReac Vomiting Verified 12/04/19 11:43 Home Meds: Home Meds Metoprolol Succinate [Toprol XL] 50 mg PO BID 02/28/14 [History] Albuterol [Proventil Neb Soln] 2.5 mg NEB Q3H PRN 07/12/15 [History] Budesonide/Formoterol [Symbicort 160-4.5 MCG] 2 puff INH BID 01/19/17 [History] ALPRAZolam [Xanax] 0.5 mg PO DAILY 06/03/19 [History] oxyCODONE HCl/Acetaminophen [Percocet 5-325 mg Tablet] 1 - 2 each PO Q6HR PRN # 20 tablet 07/30/19 [Rx] Past Medical History HEENT History: Reports: Impaired Vision Cardiovascular History: Reports: Hypertension Respiratory History: Reports: Asthma, COPD Musculoskeletal History: Reports: Back Pain, Chronic, Neck Pain, Chronic Other Musculoskeletal History: Scoliosis, spinal fusion. Neurological History: Reports: Headaches, Chronic, Migraines Psychiatric History: Reports: Addiction, Anxiety - Past Surgical History Female Surgical History: Reports: Hysterectomy Neurological Surgical History: Reports: Scoliosis, Spinal Fusion Social & Family History - Family History Family Medical History: Noncontributory - Tobacco Use Smoking Status *Q: Current Every Day Smoker Years of Tobacco use: 25 Packs/Tins Daily: 1 - Caffeine Use Caffeine Use: Reports: Coffee - Recreational Drug Use Recreational Drug Use: No - Living Situation & Occupation Living situation: Reports: , Alone Occupation: Unemployed ED ROS GENERAL - Review of Systems Review Of Systems: See Below Constitutional: Denies: Fever, Chills Respiratory: Reports: Shortness of Breath. Denies: Cough Cardiovascular: Denies: Chest Pain GI/Abdominal: Denies: Nausea, Vomiting Musculoskeletal: Reports: Neck Pain Neurological: Denies: Numbness, Tingling ED EXAM, GENERAL - Physical Exam Exam: See Below Exam Limited By: No Limitations General Appearance: Alert, WD/WN, No Apparent Distress Eye Exam: Bilateral Eye: EOMI, Normal Inspection, PERRL Neck: Normal Inspection, Supple, Tender Lateral (in the exact same spot she normally has pain) Respiratory/Chest: No Respiratory Distress, Lungs Clear, Normal Breath Sounds, No Accessory Muscle Use, Chest Non-Tender Cardiovascular: Normal Peripheral Pulses, Regular Rate, Rhythm, No Murmur Peripheral Pulses: 3+: Radial (L), Radial (R) Extremities: Normal Inspection, Normal Capillary Refill Neurological: Alert, Oriented, Normal Cognition, No Motor/Sensory Deficits Psychiatric: Tearful (pt states that she has increased stress in her life at this time, her mother recently 2 months ago, she is trying to find a new place to live, and her daughter got in a car wreck and is a paraplegic now and that she lives in [place], and she cannot see her daughter like she wants.) Skin Exam: Warm, Dry, Intact, Normal Color, No Rash Course - Vital Signs Last Recorded V/S: Last Vital Signs Temp 98.1 F 12/04/19 12:12 Pulse 78 12/04/19 14:00 Resp 13 12/04/19 12:12 BP 120/70 12/04/19 14:00 Pulse Ox 98 12/04/19 14:00 - Orders/Labs/Meds Meds: Medications Discontinued Medications Generic Name Dose Route Start Last Admin Trade Name Gee PRN Reason Stop Dose Admin Hydromorphone HCl 1 mg 12/04/19 12:50 12/04/19 13:26 Dilaudid IM 12/04/19 12:51 1 mg ONETIME ONE Administration - Re-Assessments/Exams Free Text/Narrative Re-Assessment/Exam: 12/04/19 12:58 Patient presents to the ED for her chronic neck pain and her shortness of breath. Patient states that the pain has been the most bothersome, and she states that she ran out of her Percocet pills 2 days ago. She normally got 120 count from month use, but this last prescription was only 112 for some reason. I did order a milligram of Dilaudid for management today, and will try to get her some tablets to go through to see her primary care on Tuesday. 12/04/19 13:49 Patient received pretty good relief from the medication given. Plan for discharge is as above. Departure - Departure Time of Disposition: 13:49 Disposition: Home, Self-Care 01 Condition: Fair Clinical Impression: Chronic neck pain - Discharge Information *PRESCRIPTION DRUG MONITORING PROGRAM REVIEWED*: Yes *COPY OF PRESCRIPTION DRUG MONITORING REPORT IN PATIENT RONNI: No Instructions: Neck Exercises Referrals: Sumeet Garcia Jr, MD [Primary Care Provider] - Forms: ED Department Discharge Additional Instructions: You were evaluated in the ER today regarding your neck pain and shortness of breath. You were given an injection of Dilaudid which seemed to help provide you pain relief in your neck. You were given a prescription for 10 tablets of Percocet 5/325, please take 1 tab every 6 hours as needed for pain, please try to take as few of these as possible as they can be addictive, these can also be somewhat constipating recommend you take MiraLAX for stool softener if not already doing so. Please do not drive while taking these medications. Please follow-up with your primary care provider this Tuesday as previously scheduled. Please return to the ER at any time if your symptoms change or worsen. Sepsis Event Note - Evaluation Sepsis Screening Result: No Definite Risk - Focused Exam Vital Signs: Vital Signs Temp Pulse Resp BP Pulse Ox 12/04/19 14:00 78 120/70 98 12/04/19 12:12 98.1 F 83 13 150/69 H 100 12/04/19 11:37 98.1 F 86 15 160/89 H 97 Date Exam was Performed: 12/04/19 Time Exam was Performed: 21:43
[2019-12-04 14:02] VITALS: BP 120/70; PULSE 78
== END 2019-12-04 14:03 | disposition home or self-care (01) ==
LOC: JD.ED 11:20
DX: G89.29 Other chronic pain (principal); M54.2 Cervicalgia; R06.02 Shortness of breath; F17.210 Nicotine dependence, cigarettes, uncomplicated; I10 Essential (primary) hypertension; J44.9 Chronic obstructive pulmonary disease, unspecified; F41.9 Anxiety disorder, unspecified; Z79.899 Other long term (current) drug therapy; Z88.5 Allergy status to narcotic agent
CPT/HCPCS: 96372; 99283; J1170

== ENCOUNTER 2020-01-04 01:19 | Emergency (ER) | payer MEDICAID ==
[2020-01-04 01:27] VITALS: BP 166/91; PULSE 84
[2020-01-04] MEDS ORDERED: HYDROmorphone 1 MG/ML Syringe IM ONE (01:31)
--- NOTE | 2020-01-04 01:35 | EDM.PDOC ---
ED HPI GENERAL MEDICAL PROBLEM - General Chief Complaint: Respiratory Problem Stated Complaint: [facility] Time Seen by Provider: 01/04/20 01:22 Source of Information: Reports: Patient, EMS History Limitations: Reports: No Limitations - History of Present Illness INITIAL COMMENTS - FREE TEXT/NARRATIVE: The patient presents by [facility] for neck and back pain. This is a chronic problem and she is seeing her pain doc tomorrow. She is out of her percocet and she has more pain. She has no new injuries. She has no numbness or weakness. Onset: Gradual Duration: Week(s): Location: Reports: Neck, Back Quality: Reports: Sharp Severity: Moderate Improves with: Reports: None Worsens with: Reports: None Associated Symptoms: Reports: No Other Symptoms Back Pain Score (Numeric/FACES): 5 - Related Data Allergies Allergy/AdvReac Type Severity Reaction Status Date / Time codeine AdvReac Vomiting Verified 12/04/19 11:43 Home Meds: Home Meds Metoprolol Succinate [Toprol XL] 50 mg PO BID 02/28/14 [History] Albuterol [Proventil Neb Soln] 2.5 mg NEB Q3H PRN 07/12/15 [History] Budesonide/Formoterol [Symbicort 160-4.5 MCG] 2 puff INH BID 01/19/17 [History] ALPRAZolam [Xanax] 0.5 mg PO DAILY 06/03/19 [History] oxyCODONE HCl/Acetaminophen [Percocet 5-325 mg Tablet] 1 - 2 each PO Q6HR PRN # 20 tablet 07/30/19 [Rx] Past Medical History HEENT History: Reports: Impaired Vision Cardiovascular History: Reports: Hypertension Respiratory History: Reports: Asthma, COPD Gastrointestinal History: Reports: None 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 Neurological History: Reports: Headaches, Chronic, Migraines Psychiatric History: Reports: Addiction, Anxiety Endocrine/Metabolic History: Reports: None Hematologic History: Reports: None Immunologic History: Reports: None Oncologic (Cancer) History: Reports: None Dermatologic History: Reports: None - Infectious Disease History Infectious Disease History: Reports: None - Past Surgical History Female Surgical History: Reports: Hysterectomy Neurological Surgical History: Reports: Scoliosis, Spinal Fusion Social & Family History - Family History Family Medical History: Noncontributory - Caffeine Use Caffeine Use: Reports: Coffee - Living Situation & Occupation Living situation: Reports: , Alone Occupation: Unemployed ED ROS GENERAL - Review of Systems Review Of Systems: See Below Constitutional: Reports: No Symptoms HEENT: Reports: No Symptoms Respiratory: Reports: No Symptoms Cardiovascular: Reports: No Symptoms Endocrine: Reports: No Symptoms GI/Abdominal: Reports: No Symptoms : Reports: No Symptoms Musculoskeletal: Reports: Neck Pain, Back Pain Neurological: Reports: No Symptoms ED EXAM, GENERAL - Physical Exam Exam: See Below Exam Limited By: No Limitations General Appearance: Alert, No Apparent Distress Ears: Normal External Exam Nose: Normal Inspection Head: Atraumatic, Normocephalic Neck: Normal Inspection Respiratory/Chest: No Respiratory Distress, Lungs Clear, Normal Breath Sounds Cardiovascular: Regular Rate, Rhythm, No Edema, No Murmur GI/Abdominal: Soft, Non-Tender, No Organomegaly, No Mass Back Exam: Other (Pain upon palpation to the back) Course - Vital Signs Last Recorded V/S: Last Vital Signs Temp 98.5 F 01/04/20 01:22 Pulse 84 01/04/20 01:22 Resp 20 01/04/20 01:22 BP 166/91 H 01/04/20 01:22 Pulse Ox 99 01/04/20 01:22 - Orders/Labs/Meds Orders: Active Orders 24 hr Category Date Time Status HYDROmorphone [Dilaudid] Med 01/04/20 01:31 Once 1 mg IM ONETIME ONE Medication Orders Hydromorphone HCl (Dilaudid) 1 mg IM ONETIME ONE Stop: 01/04/20 01:32 Meds: Medications Generic Name Dose Route Start Last Admin Trade Name Frejh PRN Reason Stop Dose Admin Hydromorphone HCl 1 mg 01/04/20 01:31 Dilaudid IM 01/04/20 01:32 ONETIME ONE - Re-Assessments/Exams Free Text/Narrative Re-Assessment/Exam: 01/04/20 01:34 I ordered her a shot of dilaudid 1mg IM and I will discharge her home. Departure - Departure Time of Disposition: 01:45 Disposition: Home, Self-Care 01 Condition: Good Clinical Impression: Chronic neck and back pain - Discharge Information *PRESCRIPTION DRUG MONITORING PROGRAM REVIEWED*: Not Applicable *COPY OF PRESCRIPTION DRUG MONITORING REPORT IN PATIENT RONNI: Not Applicable Additional Instructions: Follow up with your doctor tomorrow. Sepsis Event Note - Evaluation Sepsis Screening Result: No Definite Risk - Focused Exam Vital Signs: Vital Signs Temp Pulse Resp BP Pulse Ox 01/04/20 01:22 98.5 F 84 20 166/91 H 99 Date Exam was Performed: 01/04/20 Time Exam was Performed: 01:32 - My Orders Last 24 Hours: My Active Orders 01/04/20 01:31 HYDROmorphone [Dilaudid] 1 mg IM ONETIME ONE - Assessment/Plan Last 24 Hours: My Active Orders 01/04/20 01:31 HYDROmorphone [Dilaudid] 1 mg IM ONETIME ONE
== END 2020-01-04 02:00 | disposition home or self-care (01) ==
LOC: JD.ED 01:19
DX: G89.29 Other chronic pain (principal); M54.2 Cervicalgia; M54.9 Dorsalgia, unspecified; J44.9 Chronic obstructive pulmonary disease, unspecified; F41.9 Anxiety disorder, unspecified; Z88.5 Allergy status to narcotic agent; Z79.899 Other long term (current) drug therapy; Z98.1 Arthrodesis status; Z90.710 Acquired absence of both cervix and uterus
CPT/HCPCS: 96372; 99284; J1170; 99283

== ENCOUNTER 2020-01-17 10:25 | Emergency (ER) | payer MEDICAID ==
[2020-01-17] MEDS ORDERED: HYDROmorphone 1 MG/ML Syringe IM ONE (10:45)
[2020-01-17] MEDS ORDERED: Acetaminophen/oxyCODONE 325-5 MG Tab PO ONE (10:45)
--- NOTE | 2020-01-17 10:50 | EDM.PDOC ---
ED HPI GENERAL MEDICAL PROBLEM - General Chief Complaint: Back Pain or Injury Stated Complaint: [facility] Time Seen by Provider: 01/17/20 10:35 Source of Information: Reports: Patient, EMS History Limitations: Reports: No Limitations - History of Present Illness INITIAL COMMENTS - FREE TEXT/NARRATIVE: The patient presents by [facility] for chronic low back pain. The patient has a history of this and is on pain meds. She ran out a day early. Onset: Gradual Duration: Day(s): Location: Reports: Back Quality: Reports: Sharp Severity: Severe Improves with: Reports: None Worsens with: Reports: None Associated Symptoms: Reports: No Other Symptoms Treatments MANAGER CASH: Reports: Other (see below) Other Treatments MANAGER CASH: prescribed pain medications Headache Pain Score (Numeric/FACES): 8 Back Pain Score (Numeric/FACES): 8 - Related Data Allergies Allergy/AdvReac Type Severity Reaction Status Date / Time codeine AdvReac Vomiting Verified 01/17/20 10:37 Home Meds: Home Meds Metoprolol Succinate [Toprol XL] 50 mg PO BID 02/28/14 [History] Albuterol [Proventil Neb Soln] 2.5 mg NEB Q3H PRN 07/12/15 [History] Budesonide/Formoterol [Symbicort 160-4.5 MCG] 2 puff INH BID 01/19/17 [History] ALPRAZolam [Xanax] 0.5 mg PO DAILY 06/03/19 [History] oxyCODONE HCl/Acetaminophen [Percocet 5-325 mg Tablet] 1 - 2 each PO Q6HR PRN # 20 tablet 07/30/19 [Rx] Past Medical History HEENT History: Reports: Impaired Vision Cardiovascular History: Reports: Hypertension Respiratory History: Reports: Asthma, COPD Gastrointestinal History: Reports: None 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 Neurological History: Reports: Headaches, Chronic, Migraines Psychiatric History: Reports: Addiction, Anxiety Endocrine/Metabolic History: Reports: None Hematologic History: Reports: None Immunologic History: Reports: None Oncologic (Cancer) History: Reports: None Dermatologic History: Reports: None - Infectious Disease History Infectious Disease History: Reports: None - Past Surgical History Female Surgical History: Reports: Hysterectomy Neurological Surgical History: Reports: Scoliosis, Spinal Fusion Social & Family History - Family History Family Medical History: Noncontributory - Tobacco Use Smoking Status *Q: Current Every Day Smoker Years of Tobacco use: 45 Packs/Tins Daily: 0.5 - Caffeine Use Caffeine Use: Reports: Coffee, Soda - Recreational Drug Use Recreational Drug Use: No - Living Situation & Occupation Living situation: Reports: , Alone Occupation: Unemployed ED ROS GENERAL - Review of Systems Review Of Systems: See Below Constitutional: Reports: No Symptoms HEENT: Reports: No Symptoms Respiratory: Reports: No Symptoms Cardiovascular: Reports: No Symptoms Endocrine: Reports: No Symptoms GI/Abdominal: Reports: No Symptoms : Reports: No Symptoms Musculoskeletal: Reports: Back Pain Skin: Reports: No Symptoms Neurological: Reports: No Symptoms ED EXAM,LOWER BACK PAIN/INJURY - Physical Exam Exam: See Below Exam Limited By: No Limitations General Appearance: Alert, No Apparent Distress Ears: Normal External Exam Nose: Normal Inspection Head: Atraumatic, Normocephalic Neck: Normal Inspection Respiratory/Chest: No Respiratory Distress, Lungs Clear, Normal Breath Sounds Cardiovascular: Normal Peripheral Pulses, Regular Rate, Rhythm, No Edema GI/Abdominal: Soft, Non-Tender, No Organomegaly, No Mass Back Exam: Other (Back pain upon palpation) Course - Vital Signs Last Recorded V/S: Last Vital Signs Temp 97.2 F 01/17/20 10:30 Pulse 71 01/17/20 10:30 Resp 18 01/17/20 10:30 BP 168/96 H 01/17/20 10:30 Pulse Ox 98 01/17/20 10:30 - Orders/Labs/Meds Orders: Active Orders 24 hr Category Date Time Status Acetaminophen/oxyCODONE [Percocet 325-5 MG] Med 01/17/20 10:45 Once 1 tab PO ONETIME ONE HYDROmorphone [Dilaudid] Med 01/17/20 10:45 Once 1 mg IM ONETIME ONE - Re-Assessments/Exams Free Text/Narrative Re-Assessment/Exam: 01/17/20 10:49 I gave her a shot of dilaudid and 1 percocet and I will discharge her home. Departure - Departure Time of Disposition: 10:50 Disposition: Home, Self-Care 01 Condition: Good Clinical Impression: Chronic neck and back pain - Discharge Information *PRESCRIPTION DRUG MONITORING PROGRAM REVIEWED*: Not Applicable *COPY OF PRESCRIPTION DRUG MONITORING REPORT IN PATIENT RONNI: Not Applicable Additional Instructions: Follow up with your doctor. Please return if you are worse. Sepsis Event Note - Evaluation Sepsis Screening Result: No Definite Risk - Focused Exam Vital Signs: Vital Signs Temp Pulse Resp BP Pulse Ox 01/17/20 10:30 97.2 F 71 18 168/96 H 98 Date Exam was Performed: 01/17/20 Time Exam was Performed: 10:45 - My Orders Last 24 Hours: My Active Orders 01/17/20 10:45 Acetaminophen/oxyCODONE [Percocet 325-5 MG] 1 tab PO ONETIME ONE HYDROmorphone [Dilaudid] 1 mg IM ONETIME ONE - Assessment/Plan Last 24 Hours: My Active Orders 01/17/20 10:45 Acetaminophen/oxyCODONE [Percocet 325-5 MG] 1 tab PO ONETIME ONE HYDROmorphone [Dilaudid] 1 mg IM ONETIME ONE
[2020-01-17 11:07] VITALS: BP 136/117; PULSE 76
== END 2020-01-17 11:05 | disposition home or self-care (01) ==
LOC: JD.ED 10:25
DX: G89.29 Other chronic pain (principal); M54.5 Low back pain; M54.2 Cervicalgia; F17.210 Nicotine dependence, cigarettes, uncomplicated; F41.9 Anxiety disorder, unspecified; I10 Essential (primary) hypertension; J44.9 Chronic obstructive pulmonary disease, unspecified; M41.9 Scoliosis, unspecified; Z88.5 Allergy status to narcotic agent; Z79.899 Other long term (current) drug therapy
CPT/HCPCS: 96372; 99284; A9270; J1170; 99283

== ENCOUNTER 2020-06-19 18:34 | Emergency (ER) | payer MEDICAID ==
[2020-06-19 18:40] VITALS: BP 155/73; PULSE 93
--- NOTE | 2020-06-19 19:39 | EDM.PDOC ---
ED HPI GENERAL MEDICAL PROBLEM - General Chief Complaint: Back Pain or Injury Stated Complaint: [facility] Time Seen by Provider: 06/19/20 19:29 Source of Information: Reports: Patient History Limitations: Reports: No Limitations - History of Present Illness INITIAL COMMENTS - FREE TEXT/NARRATIVE: 64-year-old female presents to the ED per [facility] complaining of acute on chronic mid and upper back pain including her neck. Patient has had chronic pain in her back most of her life secondary to congenital scoliosis. She underwent rodding of her thoracic spine up to the cervical spine as a teenager. She continues to have increased pain upper back and neck which has been gradually worsening over the last several years. Today pain is out of control. She is out of her Percocet 5/325mg tabs which she takes 4 times daily. COPD/asthma remains fairly stable. She reports that she has run out of her pain medications which is usually Percocet 5-325 mg 2 tablets every 4-6 hours. She has a scheduled pickup of pain prescription medications tomorrow with Dr. Garcia. Onset: Other (Patient has chronic mid and upper back pain due to severe scoliosis of the thoracic spine repaired with Wilhelm rods many years ago. She has degenerative joint disease throughout her cervical spine and degenerative disc disease in the lumbar spine as well. Current she has no radiculopathy into any of her limbs. Her pain is primarily within her back and radiates along the costal margin to the anterior chest and abdomen.) Duration: Chronic, Getting Worse Location: Reports: Back (Primary pain throughout the entire spine from neck to tailbone.) Quality: Reports: Ache (Constant deep aching pain.), Burning, Other (Occasional burning pain.) Severity: Severe (Occasional muscle spasms. 8-9 out of 10.) Improves with: Reports: None Worsens with: Reports: Movement (Even standing too long will make the pain worse.) Context: Reports: Other (Congenital severe scoliosis of the thoracic spine with degenerative disc disease and joint disease above and below the Wilhelm loulou fixation.). Denies: Activity, Exercise, Lifting, Sick Contact, Trauma Associated Symptoms: Reports: Cough, cough w sputum, Loss of Appetite, Malaise, Shortness of Breath (No worse than normal. She has COPD asthma.). 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: Other (see below) (She does take the occasional Motrin medication but he usually does not find this effective.) Back Pain Score (Numeric/FACES): 9 - Related Data Allergies Allergy/AdvReac Type Severity Reaction Status Date / Time codeine AdvReac Vomiting Verified 01/17/20 10:37 Home Meds: Home Meds Metoprolol Succinate [Toprol XL] 50 mg PO BID 02/28/14 [History] Albuterol [Proventil Neb Soln] 2.5 mg NEB Q3H PRN 07/12/15 [History] Budesonide/Formoterol [Symbicort 160-4.5 MCG] 2 puff INH BID 01/19/17 [History] ALPRAZolam [Xanax] 0.5 mg PO DAILY 06/03/19 [History] oxyCODONE HCl/Acetaminophen [Percocet 5-325 mg Tablet] 1 - 2 each PO Q6HR PRN #20 tablet 07/30/19 [Rx] Past Medical History HEENT History: Reports: Impaired Vision Cardiovascular History: Reports: Hypertension Respiratory History: Reports: Asthma, COPD (Continues to smoke cigarettes. 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 Neurological History: Reports: Headaches, Chronic, Migraines Psychiatric History: Reports: Addiction, Anxiety Endocrine/Metabolic History: Reports: None Hematologic History: Reports: None Immunologic History: Reports: None Oncologic (Cancer) History: Reports: None Dermatologic History: Reports: None - Infectious Disease History Infectious Disease History: Reports: None - Past Surgical History Female Surgical History: Reports: Hysterectomy Neurological Surgical History: Reports: Scoliosis, Spinal Fusion Social & Family History - Family History Family Medical History: Noncontributory - Tobacco Use Smoking Status *Q: Current Every Day Smoker Years of Tobacco use: 30 Packs/Tins Daily: 0.5 - Caffeine Use Caffeine Use: Reports: Coffee, Soda - Living Situation & Occupation Living situation: Reports: , Alone Occupation: Unemployed ED ROS GENERAL - Review of Systems Review Of Systems: See Below Constitutional: Reports: Malaise, Weakness, Fatigue, Decreased Appetite, Weight Loss. Denies: Fever, Chills HEENT: Reports: Glasses Respiratory: Reports: Shortness of Breath, Wheezing, Cough, Sputum. Denies: Pleuritic Chest Pain, Hemoptysis, Other (Occasional brownish sputum production) Cardiovascular: Reports: Chest Pain ([place] from her back.), Dyspnea on Exertion. Denies: Blood Pressure Problem, Edema (Tonically.), Lightheadedness, Orthopnea, Palpitations Endocrine: Reports: Fatigue GI/Abdominal: Reports: Constipation (Occasional problems with constipation.) : Reports: Frequency, Incontinence (Mostly urgent just.) Musculoskeletal: Reports: Neck Pain, Shoulder Pain (Back pain and neck pain.), Back Pain, Joint Pain. Denies: Hand Pain, Leg Pain, Foot Pain Skin: Reports: No Symptoms (Knees hips occasionally.) Neurological: Reports: Headache, Difficulty Walking. Denies: Tremors, Trouble Speaking, Weakness ED EXAM,LOWER BACK PAIN/INJURY - Physical Exam Exam: See Below Exam Limited By: No Limitations General Appearance: Alert, WD/WN, Moderate Distress, Other (Temperature is 37.2. Heart rate is 93 and sinus respiratory to 16 with O2 sats of 97% on room air BP elevated 155/73 presumably due to pain response as the patient normally is n ot hypertensive.) Eye Exam: Bilateral Eye: Normal Inspection, PERRL Throat/Mouth: Normal Inspection, Other Head: Atraumatic (Diffuse erythema of the oropharynx from cigarette smoking.), Normocephalic Neck: Normal Inspection, Limited Range of Motion, Other (Fused lateral tenderness of the cervical spine bilaterally.). No: Carotid Bruit, Lymphadenopathy (L), Lymphadenopathy (R), Thyromegaly Respiratory/Chest: No Respiratory Distress, Lungs Clear, Decreased Breath Sounds (Decreased breath sounds to the lower 35% of both lung arreaga posteriorly. Seems to be a little bit worse on the right side.), Wheezing (Occasional expiratory wheeze on forced expiration.). No: Normal Breath Sounds, Rales, Rhonchi Cardiovascular: Regular Rate, Rhythm, No Edema, No Gallop, No Murmur, No Rub. No: Normal Peripheral Pulses GI/Abdominal: Normal Bowel Sounds, Soft, Non-Tender, No Organomegaly, No Mass, Pelvis Stable Back Exam: Other (Patient has severe kyphosis of the upper thoracic spine. She has a long midline scar from the base of her neck to the lumbar spine compatible with Wilhelm loulou and hardware placement in her entire thoracic spine. She has almost no ability to rotate at the hips and ability to forward flex is severely limited due to fusion of the back.) Extremities: Other (Limbs does reveal some atrophy of the muscles both legs and arms.). No: Pedal Edema Neurological: Alert, Normal Mood/Affect, Normal Dorsiflexion, CN II-XII Intact, Normal Plantar Flexion, No Motor/Sensory Deficits, Oriented x 3. No: Normal Gait DTR - Lower Extremities: 0: Ankle (R), Ankle (L), 1+: Knee (R), Knee (L) Psychiatric: Anxious, Depressed Mood, Other (Chronic pain has created a sense of hopelessness.) Skin Exam: Warm, Dry, Intact, Normal Color, No Rash Course - Vital Signs Last Recorded V/S: Last Vital Signs Temp 37.2 C 06/19/20 18:37 Pulse 93 06/19/20 18:37 Resp 16 06/19/20 18:37 BP 155/73 H 06/19/20 18:37 Pulse Ox 97 06/19/20 18:37 - Orders/Labs/Meds Meds: Medications Discontinued Medications Generic Name Dose Route Start Last Admin Trade Name Asadq PRN Reason Stop Dose Admin Hydromorphone HCl 1 mg 06/19/20 19:45 06/19/20 19:50 Dilaudid IM 06/19/20 19:46 1 mg ONETIME ONE Administration Oxycodone/Acetaminophen 2 tab 06/19/20 20:28 06/19/20 20:52 Percocet 325-5 Mg PO 06/19/20 20:29 2 tab ONETIME ONE Administration Promethazine HCl 12.5 mg 06/19/20 19:45 06/19/20 19:50 Phenergan IM 06/19/20 19:46 12.5 mg ONETIME ONE Administration - Radiology Interpretation Free Text/Narrative:: 64-year-old female attends the ED for evaluation of acute on chronic back pain. Patient has chronic back pain for many years since she had congenital scoliosis of the thoracic spine which was very severe. She underwent Wilhelm loulou placement greater than 35 years ago. She has noted degenerative disc disease in her cervical and lumbar spine. Diffuse degenerative arthritis throughout the entire spine. Currently she is using Percocet tabs 5/325 1 or 2 every 4-6 hours for pain relief for many years. She reports that she is used a few more tablets as of recent due to the severity of the pain. Her primary reason for coming to the ED tonight was pain management. She is scheduled to pickle pumper a prescription tomorrow for Percocet tabs. She reports that she had good relief with OxyContin tablets in the past but has not been considered for return to that treatment plan. She continues to use short acting pain medications with limited pain control. Plan patient will be given an IM injection of Dilaudid with 12.5 mg of Phenergan IM for acute pain relief tonight. She will be sent home with 2 tablets of Percocet 5/325 mg strength to take later tonight or early tomorrow morning for pain relief. She is scheduled pickup of Percocet tablets tomorrow through her own pharmacy per Dr. Garcia's order. Mentioned that she may be a candidate for fentanyl patch but she is scared of fentanyl at this time and has no consideration for using this type of chronic pain medication. - Re-Assessments/Exams Free Text/Narrative Re-Assessment/Exam: 06/19/20 20:25: Patient states that she has had some relief of the pain after IM injection of Dilaudid and Phenergan. She will be discharged home on 2 Percocet tabs 5 325 mg strength for use later tonight as she has no pain medication at home. Will be discharged at this time. Departure - Departure Time of Disposition: 20:28 Disposition: Home, Self-Care 01 Condition: Fair Clinical Impression: Exacerbation of chronic back pain - Discharge Information *PRESCRIPTION DRUG MONITORING PROGRAM REVIEWED*: Not Applicable *COPY OF PRESCRIPTION DRUG MONITORING REPORT IN PATIENT RONNI: Not Applicable Instructions: Chronic Back Pain, [id number] Referrals: PCP,Unknown [Ordering Only Provider] - Forms: ED Department Discharge Additional Instructions: You were seen in the ED tonight in regards to acute exacerbation of chronic mid and upper back pain and cervical neck pain. history of congenital scoliosis with wilhelm loulou repair and continued degenerative changes have made back pain progressively worse. Pain management in the ED tonight was intramuscular Dilaudid 1mg with Phenergan 12.5 mg IM as well. Yoou will be sent home with 2 Percocet tabs 5/325mg which may be taken later tonight or early in am for pain relief until you can pickle pumper your prescription tomorrow. Sepsis Event Note (ED) - Evaluation Sepsis Screening Result: No Definite Risk - Focused Exam Vital Signs: Vital Signs Temp Pulse Resp BP Pulse Ox 06/19/20 18:37 37.2 C 93 16 155/73 H 97
[2020-06-19] MEDS ORDERED: Promethazine 25 MG/ML SDV IM ONE (19:45)
[2020-06-19] MEDS ORDERED: HYDROmorphone 1 MG/ML Syringe IM ONE (19:45)
[2020-06-19] MEDS ORDERED: Acetaminophen/oxyCODONE 325-5 MG Tab PO ONE (20:28)
== END 2020-06-19 20:53 | disposition home or self-care (01) ==
LOC: JD.ED 18:34
DX: G89.29 Other chronic pain (principal); M54.9 Dorsalgia, unspecified; Q67.5 Congenital deformity of spine; J44.9 Chronic obstructive pulmonary disease, unspecified; I10 Essential (primary) hypertension; F41.9 Anxiety disorder, unspecified; F17.210 Nicotine dependence, cigarettes, uncomplicated; M40.204 Unspecified kyphosis, thoracic region; Z88.5 Allergy status to narcotic agent; Z79.899 Other long term (current) drug therapy
CPT/HCPCS: 96372; 99284; A9270; J1170; J2550; 99283

== ENCOUNTER 2020-07-31 15:56 | Emergency (ER) | payer MEDICAID ==
[2020-07-31 16:26] VITALS: BP 154/87; PULSE 86
[2020-07-31] MEDS ORDERED: HYDROmorphone 1 MG/ML Syringe IM ONE (16:54)
[2020-07-31] MEDS ORDERED: Acetaminophen/oxyCODONE 325-5 MG Tab PO ONE (16:55)
--- NOTE | 2020-07-31 16:55 | EDM.PDOC ---
ED HPI GENERAL MEDICAL PROBLEM - General Chief Complaint: Headache Stated Complaint: HEADACHE,AND NOT FEELING WELL Time Seen by Provider: 07/31/20 16:07 Source of Information: Reports: Patient History Limitations: Reports: No Limitations - History of Present Illness INITIAL COMMENTS - FREE TEXT/NARRATIVE: The patient presents with a headache. She has a history of back pain with scoliosis and surgery [address] Garcia and she gets percocets from him. She is out today and has a headache. She has no numbness or weakness. She has no fever, chills, cough, congestion, runny nose, chest pain or shortness of breath. Onset: Gradual Duration: Day(s): Location: Reports: Head Quality: Reports: Sharp Severity: Severe Improves with: Reports: None Worsens with: Reports: None Associated Symptoms: Reports: No Other Symptoms Headache Pain Score (Numeric/FACES): 7 - Related Data Allergies Allergy/AdvReac Type Severity Reaction Status Date / Time codeine AdvReac Vomiting Verified 07/31/20 16:20 Home Meds: Home Meds Metoprolol Succinate [Toprol XL] 50 mg PO BID 02/28/14 [History] Albuterol [Proventil Neb Soln] 2.5 mg NEB Q3H PRN 07/12/15 [History] Budesonide/Formoterol [Symbicort 160-4.5 MCG] 2 puff INH BID 01/19/17 [History] ALPRAZolam [Xanax] 0.5 mg PO DAILY 06/03/19 [History] oxyCODONE HCl/Acetaminophen [Percocet 5-325 mg Tablet] 1 - 2 each PO Q6HR PRN #20 tablet 07/30/19 [Rx] Past Medical History HEENT History: Reports: Impaired Vision Cardiovascular History: Reports: Hypertension Respiratory History: Reports: Asthma, COPD Gastrointestinal History: Reports: None 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 Neurological History: Reports: Headaches, Chronic, Migraines Psychiatric History: Reports: Addiction, Anxiety Endocrine/Metabolic History: Reports: None Hematologic History: Reports: None Immunologic History: Reports: None Oncologic (Cancer) History: Reports: None Dermatologic History: Reports: None - Infectious Disease History Infectious Disease History: Reports: None - Past Surgical History Female Surgical History: Reports: Hysterectomy Neurological Surgical History: Reports: Scoliosis, Spinal Fusion Social & Family History - Family History Family Medical History: Noncontributory - Tobacco Use Smoking Status *Q: Current Every Day Smoker Years of Tobacco use: 40 Packs/Tins Daily: 0.5 - Caffeine Use Caffeine Use: Reports: Coffee - Recreational Drug Use Recreational Drug Use: No - Living Situation & Occupation Living situation: Reports: , Alone Occupation: Unemployed ED ROS GENERAL - Review of Systems Review Of Systems: See Below Constitutional: Reports: No Symptoms HEENT: Reports: No Symptoms Respiratory: Reports: No Symptoms Cardiovascular: Reports: No Symptoms Endocrine: Reports: No Symptoms GI/Abdominal: Reports: No Symptoms : Reports: No Symptoms Musculoskeletal: Reports: No Symptoms Neurological: Reports: Headache - Physical Exam Exam: See Below Exam Limited By: No Limitations General Appearance: Alert, No Apparent Distress Ears: Normal External Exam Throat/Mouth: Normal Inspection Head Exam: Atraumatic, Normocephalic Neck: Normal Inspection Respiratory/Chest: No Respiratory Distress, Lungs Clear, Normal Breath Sounds Cardiovascular: Regular Rate, Rhythm, No Edema, No Murmur GI/Abdominal: Soft, Non-Tender, No Organomegaly, No Mass Course - Vital Signs Last Recorded V/S: Last Vital Signs Temp 98.0 F 07/31/20 16:20 Pulse 86 07/31/20 16:20 Resp 20 07/31/20 16:20 BP 154/87 H 07/31/20 16:20 Pulse Ox 98 07/31/20 16:20 - Re-Assessments/Exams Free Text/Narrative Re-Assessment/Exam: 07/31/20 16:54 I have ordered a shot of dilaudid. Departure - Departure Time of Disposition: 16:55 Disposition: Home, Self-Care 01 Condition: Good Clinical Impression: Headache Qualifiers: Headache type: other headache syndrome Qualified Code(s): G44.89 - Other headache syndrome - Discharge Information *PRESCRIPTION DRUG MONITORING PROGRAM REVIEWED*: Not Applicable *COPY OF PRESCRIPTION DRUG MONITORING REPORT IN PATIENT RONNI: Not Applicable Referrals: Sumeet Garcia Jr, MD [Primary Care Provider] - 1 Week Additional Instructions: Take your medication as prescribed. Follow up with Dr Garcia. Sepsis Event Note (ED) - Evaluation Sepsis Screening Result: No Definite Risk - Focused Exam Vital Signs: Vital Signs Temp Pulse Resp BP Pulse Ox 07/31/20 16:20 98.0 F 86 20 154/87 H 98
== END 2020-07-31 17:20 | disposition home or self-care (01) ==
LOC: JD.ED 15:56
DX: G44.89 Other headache syndrome (principal); F17.210 Nicotine dependence, cigarettes, uncomplicated; I10 Essential (primary) hypertension; J44.9 Chronic obstructive pulmonary disease, unspecified; M41.9 Scoliosis, unspecified; F41.9 Anxiety disorder, unspecified; Z79.899 Other long term (current) drug therapy; Z88.5 Allergy status to narcotic agent
CPT/HCPCS: 96372; 99283; A9270; J1170

== ENCOUNTER 2020-08-28 09:02 | Emergency (ER) | payer MEDICAID ==
[2020-08-28 09:18] VITALS: BP 160/147; PULSE 67
--- NOTE | 2020-08-28 10:01 | EDM.PDOC ---
ED HPI GENERAL MEDICAL PROBLEM - General Chief Complaint: Back Pain or Injury Stated Complaint: BACK PAIN Time Seen by Provider: 08/28/20 09:46 - History of Present Illness INITIAL COMMENTS - FREE TEXT/NARRATIVE: 64-year-old female presents the emergency room with low back pain. Patient has a long history of scoliosis she has had surgery about 20 years ago. Currently the patient uses Percocet, roughly 4 daily. However she has had increased pain in her usage has gone up a little bit she sees her regular doctor, Dr. Garcia, every Tuesday. And now apparently she is out of her Percocet. The patient denies any recent injury or precipitating factor for her back pain. She is not had any fevers or chills. No discogenic type nerve pain no loss of bowel or bladder control. Back Pain Score (Numeric/FACES): 8 - Related Data Allergies Allergy/AdvReac Type Severity Reaction Status Date / Time No Known Allergies Allergy Verified 08/28/20 09:18 Home Meds: Home Meds Metoprolol Succinate [Toprol XL] 50 mg PO BID 02/28/14 [History] Albuterol [Proventil Neb Soln] 2.5 mg NEB Q3H PRN 07/12/15 [History] Budesonide/Formoterol [Symbicort 160-4.5 MCG] 2 puff INH BID 01/19/17 [History] ALPRAZolam [Xanax] 0.5 mg PO DAILY 06/03/19 [History] oxyCODONE HCl/Acetaminophen [Percocet 5-325 mg Tablet] 1 - 2 each PO Q6HR PRN #20 tablet 07/30/19 [Rx] Past Medical History HEENT History: Reports: Impaired Vision Cardiovascular History: Reports: Hypertension Respiratory History: Reports: Asthma, COPD Gastrointestinal History: Reports: None 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 Neurological History: Reports: Headaches, Chronic, Migraines Psychiatric History: Reports: Addiction, Anxiety Endocrine/Metabolic History: Reports: None Hematologic History: Reports: None Immunologic History: Reports: None Oncologic (Cancer) History: Reports: None Dermatologic History: Reports: None - Infectious Disease History Infectious Disease History: Reports: None - Past Surgical History Female Surgical History: Reports: Hysterectomy Neurological Surgical History: Reports: Scoliosis, Spinal Fusion Social & Family History - Family History Family Medical History: Noncontributory - Tobacco Use Tobacco Use Status *Q: Current Every Day Tobacco User Years of Tobacco use: 50 Packs/Tins Daily: 1 - Caffeine Use Caffeine Use: Reports: Coffee - Recreational Drug Use Recreational Drug Use: No - Living Situation & Occupation Living situation: Reports: , Alone Occupation: Unemployed ED ROS GENERAL - Review of Systems Review Of Systems: See Below Constitutional: Reports: No Symptoms Respiratory: Reports: No Symptoms Cardiovascular: Reports: No Symptoms GI/Abdominal: Reports: No Symptoms : Reports: No Symptoms ED EXAM,LOWER BACK PAIN/INJURY - Physical Exam Exam: See Below Exam Limited By: No Limitations General Appearance: Alert, No Apparent Distress Head: Atraumatic, Normocephalic Neck: Normal Inspection, Supple, Non-Tender, Full Range of Motion Respiratory/Chest: No Respiratory Distress, Lungs Clear, Normal Breath Sounds, No Accessory Muscle Use, Chest Non-Tender Cardiovascular: Normal Peripheral Pulses, Regular Rate, Rhythm, No Edema, No Gallop, No JVD, No Murmur, No Rub GI/Abdominal: Normal Bowel Sounds, Soft, Non-Tender Back Exam: Normal Inspection, Other (Patient has a extensive well-healed incision encompassing the entire lumbar extending into the thoracic spine and stopping shortly before the cervical spine. Right side of her back is bulging posterior secondary to the severe scoliosis. No acute changes noted on back exam). No: CVA Tenderness (L), CVA Tenderness (R), Vertebral Tenderness Extremities: Normal Inspection, No Pedal Edema Neurological: Alert, Normal Mood/Affect Course - Vital Signs Last Recorded V/S: Last Vital Signs Temp 36.0 C L 08/28/20 09:15 Pulse 67 08/28/20 09:15 Resp 16 08/28/20 09:15 BP 160/147 H 08/28/20 09:15 Pulse Ox 97 08/28/20 09:15 - Re-Assessments/Exams Free Text/Narrative Re-Assessment/Exam: 08/28/20 10:17 I had a long discussion with the patient about the importance of her following up only with her regular physician for refills of her medication and as a general rule we do not do this in the emergency room. However I will give her a few pills to get her by until her regular appointment tomorrow. Departure - Departure Time of Disposition: 10:18 Disposition: Home, Self-Care 01 Clinical Impression: Chronic low back pain Chronic back pain Qualifiers: Back pain location: thoracic back pain Back pain laterality: midline Qualified Code(s): M54.6 - Pain in thoracic spine - Discharge Information Referrals: Sumeet Garcia Jr, MD [Primary Care Provider] - Additional Instructions: Return to the emergency room with any questions problems or worsening symptoms. As a general rule we do not do refills of pain medications in the emergency room. Today however, I will give you 4 pills to get you by until your appointment tomorrow. However this is a one-time occurrence. It is vitally important that all your pain medications go through your regular healthcare provider. Make a list of your medications including all names doses and how often you take them. This is very important in order to provide you the best health care possible. Follow-up in the clinic tomorrow as scheduled. Sepsis Event Note (ED) - Evaluation Sepsis Screening Result: No Definite Risk - Focused Exam Vital Signs: Vital Signs Temp Pulse Resp BP Pulse Ox 08/28/20 09:15 36.0 C L 67 16 160/147 H 97
== END 2020-08-28 10:37 | disposition home or self-care (01) ==
LOC: JD.ED 09:02
DX: M54.5 Low back pain (principal); M54.6 Pain in thoracic spine; G89.29 Other chronic pain; J44.9 Chronic obstructive pulmonary disease, unspecified; M41.9 Scoliosis, unspecified; I10 Essential (primary) hypertension; F17.210 Nicotine dependence, cigarettes, uncomplicated; Z79.899 Other long term (current) drug therapy
CPT/HCPCS: 99283

== ENCOUNTER 2020-11-14 04:44 | Emergency (ER) | payer MEDICAID ==
[2020-11-14 04:57] VITALS: BP 148/98; PULSE 78
--- NOTE | 2020-11-14 05:23 | EDM.PDOC ---
ED HPI GENERAL MEDICAL PROBLEM - General Chief Complaint: Medication Administration Stated Complaint: SOB Time Seen by Provider: 11/14/20 05:01 Source of Information: Reports: Patient History Limitations: Reports: No Limitations - History of Present Illness INITIAL COMMENTS - FREE TEXT/NARRATIVE: Ms. Koch is a 65-year-old woman with a past medical history significant for scoliosis, status post spinal deformity surgery with Wilhelm rods, with chronic back pain, currently being prescribed Percocet 5/325, 1 tablet every 6 hours, by her PCP. The patient has a longstanding history of opiate abuse and drug-seeking behavior, therefore her PCP prescribes her only 1 week's worth of tablets (#28) at a time, every Tuesday, with her most recent prescription being filled this past 11/07/2020. She now presents to the ED stating that she believes that she is experiencing opiate withdraw, by which she means that she is having difficulty sleeping. She denies that she is taking her pills in excess of the prescription, but states that she has broken her remaining tablets in half, trying to make them last longer. Nevertheless, she states that she has only half a tablet left, which she does not feel will last her until she sees her PCP again later today. She acknowledges that she received the full 28 tablets with her last prescription, and denies that she lost any tablets, but is then unable to explain how it is that she could be short on her medications at this time. She is requesting that I prescribe for her a few tablets to get her through today, and, further, that I prescribe her something stronger than Percocet 5/325. Here in the ED, the patient's initial BP is found to be mildly elevated at 148/98, otherwise, she is hemodynamically stable, afebrile, saturating 90% on room air. Other than chronic back pain and difficulty sleeping, the patient denies having a recent fever, chills, sore throat, ear pain, nasal or sinus congestion, cough, dyspnea, chest pain, palpitations, nausea, vomiting, constipation, diarrhea, abdominal pain, urinary symptoms, recent weight gain or weight loss, recent bloody bowel movements or black bowel movements, recent joint aches, headaches, or rashes. The patient's PCP is Dr. Sumeet Garcia. Back Pain Score (Numeric/FACES): 9 - Related Data Allergies Allergy/AdvReac Type Severity Reaction Status Date / Time No Known Allergies Allergy Verified 08/28/20 09:18 Home Meds: Home Meds Metoprolol Succinate [Toprol XL] 50 mg PO BID 02/28/14 [History] Albuterol [Proventil Neb Soln] 2.5 mg NEB Q3H PRN 07/12/15 [History] Budesonide/Formoterol [Symbicort 160-4.5 MCG] 2 puff INH BID 01/19/17 [History] ALPRAZolam [Xanax] 0.5 mg PO DAILY 06/03/19 [History] oxyCODONE HCl/Acetaminophen [Percocet 5-325 mg Tablet] 1 - 2 each PO Q6HR PRN #20 tablet 07/30/19 [Rx] Acetaminophen/oxyCODONE [Percocet 325-5 MG] 1 each PO Q6H #4 tab 08/28/20 [Rx] Past Medical History HEENT History: Reports: Impaired Vision Cardiovascular History: Reports: Hypertension Respiratory History: Reports: Asthma, COPD Musculoskeletal History: Reports: Back Pain, Chronic (scoliosis, s/p corrective surgery), Neck Pain, Chronic Psychiatric History: Reports: Addiction (opiates), Anxiety - Past Surgical History Female Surgical History: Reports: Hysterectomy Neurological Surgical History: Reports: Scoliosis (Wilhelm rods around 1999) Social & Family History - Tobacco Use Tobacco Use Status *Q: Current Every Day Tobacco User Years of Tobacco use: 50 Packs/Tins Daily: 1 - Caffeine Use Caffeine Use: Reports: Coffee - Alcohol Use Alcohol Use History: Yes Date/Time of Last Drink Comment: Alcoholic, sober since early - Recreational Drug Use Recreational Drug Use: Yes Drug Use in Last 12 Months: Yes Recreational Drug Type: Reports: Other (see below) (Opiates) - Living Situation & Occupation Living situation: Reports: , Alone Occupation: Unemployed ED ROS GENERAL - Review of Systems Review Of Systems: Comprehensive ROS is negative, except as noted in HPI. ED EXAM, GENERAL - Physical Exam Exam: See Below Exam Limited By: No Limitations General Appearance: Alert, WD/WN, No Apparent Distress Eye Exam: Bilateral Eye: EOMI, Normal Inspection Ears: Normal External Exam, Hearing Grossly Normal Nose: Normal Inspection Throat/Mouth: Normal Inspection, Normal Lips, Normal Voice, No Airway Compromise Head: Atraumatic, Normocephalic Neck: Normal Inspection, Full Range of Motion Respiratory/Chest: No Respiratory Distress, Lungs Clear, Normal Breath Sounds, No Accessory Muscle Use Cardiovascular: Normal Peripheral Pulses, Regular Rate, Rhythm, No Gallop, No JVD, No Murmur, No Rub Peripheral Pulses: 3+: Radial (L), Radial (R) GI/Abdominal: Normal Bowel Sounds, Soft, Non-Tender, No Organomegaly, No Distention, No Abnormal Bruit, No Mass Back Exam: Normal Inspection Extremities: Normal Inspection, Normal Range of Motion, Normal Capillary Refill Neurological: Alert, Oriented, Normal Cognition, No Motor/Sensory Deficits Psychiatric: Normal Affect Skin Exam: Warm, Dry, Intact, Normal Color, No Rash Course - Vital Signs Last Recorded V/S: Last Vital Signs Temp 36.4 C 11/14/20 04:53 Pulse 78 11/14/20 04:53 Resp 18 11/14/20 04:53 BP 148/98 H 11/14/20 04:53 Pulse Ox 98 11/14/20 04:53 - Re-Assessments/Exams Free Text/Narrative Re-Assessment/Exam: 11/14/20 05:22 As above, the patient is prescribed 28 tablets of Percocet per week by her PCP, intended to be taken 4 tablets/day, but she is now presenting to the ED stating that she is suffering from "withdraw" due to being out of Percocet, although her definition of withdraw is not sleeping well. She acknowledges that she was given the full prescription of 28 tablets last Tuesday, and she denies losing any, so while she is trying to tell me otherwise, her running out early can only occur if she is taking her Percocet in excess of her prescription. This is the exact same situation as when she was last seen here on 08/28/2020, and her chart indicates several episodes of opioid abuse and drug-seeking behavior going back many years. In addition to requesting that I give her a few pills to tide her over until she sees her PCP later today, she is also requesting that I prescribe her something stronger than Percocet. Obviously, the patient is not suffering from opioid withdrawal, and there is no way that I am going to be prescribing her any additional opioids of any strength. Not having a genuine medical emergency, I will discharge her home. Departure - Departure Time of Disposition: :28 Disposition: Home, Self-Care 01 Condition: Good Clinical Impression: Drug-seeking behavior, Prescription drug abuse - Discharge Information *PRESCRIPTION DRUG MONITORING PROGRAM REVIEWED*: No *COPY OF PRESCRIPTION DRUG MONITORING REPORT IN PATIENT RONNI: No Instructions: Prescription Drug Misuse Information Referrals: Sumeet Garcia Jr, MD [Primary Care Provider] - Forms: ED Department Discharge Additional Instructions: You were seen in the emergency room requesting additional opioid pain medications after running out of your prescription too soon. As discussed, it is not permissible to take a prescription opioid pain medication in excess of the dosage prescribed. If you need a stronger pain medication or higher number of pills prescribed, you need to discuss that with your single prescriber, Dr. Sumeet Garcia. Please follow-up with your PCP, Dr. Sumeet Garcia, later today. If any other problems, please do not hesitate to return to the ER. Sepsis Event Note (ED) - Evaluation Sepsis Screening Result: No Definite Risk - Focused Exam Vital Signs: Vital Signs Temp Pulse Resp BP Pulse Ox 11/14/20 04:53 36.4 C 78 18 148/98 H 98
== END 2020-11-14 05:53 | disposition home or self-care (01) ==
LOC: JD.ED 04:44
DX: F11.10 Opioid abuse, uncomplicated (principal); M41.9 Scoliosis, unspecified; J44.9 Chronic obstructive pulmonary disease, unspecified; Z79.899 Other long term (current) drug therapy; Z72.0 Tobacco use; Z76.0 Encounter for issue of repeat prescription
CPT/HCPCS: 99282; 99284

== ENCOUNTER 2021-01-13 22:18 | Emergency (ER) | payer MEDICAID, MEDICARE ==
[2021-01-13 22:24] VITALS: BP 159/78; PULSE 71
--- NOTE | 2021-01-13 22:58 | EDM.PDOC ---
ED HPI GENERAL MEDICAL PROBLEM - General Chief Complaint: Gastrointestinal Problem Stated Complaint: [facility] Time Seen by Provider: 01/13/21 22:36 Source of Information: Reports: Patient History Limitations: Reports: No Limitations - History of Present Illness INITIAL COMMENTS - FREE TEXT/NARRATIVE: Ms. Koch is a 65-year-old woman with a past medical history significant for scoliosis, status post spinal deformity corrective surgery with Wilhelm rods, with chronic back pain, prescribed Percocet 10/325, 1 tablet every 6 hours by her longstanding PCP, who now presents to the ED stating that her PCP retired, therefore she switched to a different provider, who then switched the patient's Percocet to morphine 15 mg, 1 tablet po BID. The patient has a long history of opiate abuse and drug-seeking behavior, therefore her prior PCP prescribed her only 1 week's worth of Percocet at a time, every Tuesday. Her new PCP is carrying on the same tradition, with the patient receiving her first prescription of morphine this past 01/09/2021. As she had done with her Percocet's, however, she took her morphine in excess of the prescription, finishing the entire 7-day course by yesterday, 01/12/2021. She is now out of morphine, requesting more pain medication, but also complaining of nausea and vomiting that she states is due to opiate withdrawal. Here in the ED, the patient's initial BP is found to be mildly elevated at 159/78, otherwise, she is hemodynamically stable, afebrile, saturating 96% on room air. Other than her chronic back pain and recent nausea and vomiting, the patient denies having a recent fever, chills, sore throat, ear pain, nasal or sinus congestion, cough, dyspnea, chest pain, palpitations, constipation, diarrhea, a bdominal pain, urinary symptoms, recent weight gain or weight loss, recent bloody bowel movements or black bowel movements, recent joint aches, headaches, or rashes. The patient's new PCP is Paige Davis NP. 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: IV/IO, Other (see below) Other Treatments COPPING MACHINE OPERATOR: Zofran 4 mg - Related Data Allergies Allergy/AdvReac Type Severity Reaction Status Date / Time No Known Allergies Allergy Verified 01/13/21 22:21 Home Meds: Home Meds Metoprolol Succinate [Toprol XL] 50 mg PO BID 02/28/14 [History] Albuterol [Proventil Neb Soln] 2.5 mg NEB Q3H PRN 07/12/15 [History] Budesonide/Formoterol [Symbicort 160-4.5 MCG] 2 puff INH BID 01/19/17 [History] Past Medical History HEENT History: Reports: Impaired Vision Cardiovascular History: Reports: Hypertension Respiratory History: Reports: Asthma, COPD Musculoskeletal History: Reports: Back Pain, Chronic (scoliosis, s/p corrective surgery), Neck Pain, Chronic Psychiatric History: Reports: Addiction (opiatesopiates), Anxiety - Past Surgical History Female Surgical History: Reports: Hysterectomy Neurological Surgical History: Reports: Scoliosis (Wilhelm rods around 1999) Social & Family History - Tobacco Use Tobacco Use Status *Q: Current Every Day Tobacco User Years of Tobacco use: 50 Packs/Tins Daily: 1 - Caffeine Use Caffeine Use: Reports: Coffee - Alcohol Use Alcohol Use History: Yes Date/Time of Last Drink Comment: Alcoholic, sober since early - Recreational Drug Use Recreational Drug Use: Yes Drug Use in Last 12 Months: Yes Recreational Drug Type: Reports: Other (see below) (Opiates) - Living Situation & Occupation Living situation: Reports: , Alone Occupation: Unemployed ED ROS GENERAL - Review of Systems Review Of Systems: Comprehensive ROS is negative, except as noted in HPI. ED EXAM, GENERAL - Physical Exam Exam: See Below Exam Limited By: No Limitations General Appearance: Alert, WD/WN, No Apparent Distress, Other (Holding an empty emesis bag) Eye Exam: Bilateral Eye: EOMI, Normal Inspection Ears: Normal External Exam, Hearing Grossly Normal Nose: Normal Inspection Throat/Mouth: Normal Inspection, Normal Lips, Normal Voice, No Airway Compromise Head: Atraumatic, Normocephalic Neck: Normal Inspection, Full Range of Motion Respiratory/Chest: No Respiratory Distress, Lungs Clear, Normal Breath Sounds, No Accessory Muscle Use Cardiovascular: Normal Peripheral Pulses, Regular Rate, Rhythm, No Gallop, No JVD, No Murmur, No Rub Peripheral Pulses: 3+: Radial (L), Radial (R) GI/Abdominal: Normal Bowel Sounds, Soft, Non-Tender, No Organomegaly, No Distention, No Abnormal Bruit, No Mass Back Exam: Normal Inspection, Full Range of Motion, NT Extremities: Normal Inspection, Normal Range of Motion, Normal Capillary Refill Neurological: Alert, Oriented, Normal Cognition, No Motor/Sensory Deficits Psychiatric: Normal Affect Skin Exam: Warm, Dry, Intact, Normal Color, No Rash Course - Vital Signs Last Recorded V/S: Last Vital Signs Temp 36.4 C 01/13/21 22:21 Pulse 71 01/13/21 22:21 Resp 17 01/13/21 22:21 BP 159/78 H 01/13/21 22:21 Pulse Ox 96 01/13/21 22:21 - Orders/Labs/Meds Labs: Laboratory Tests 01/13/21 01/13/21 Range/Units 23:05 23:05 WBC 8.35 (3.98-10.04) K/mm3 RBC 4.58 (3.98-5.22) M/mm3 Hgb 15.9 H (11.2-15.7) gm/dl Hct 47.2 H (34.1-44.9) % MCV 103.1 H D (79.4-94.8) fl MCH 34.7 H (25.6-32.2) pg MCHC 33.7 (32.2-35.5) g/dl RDW Std Deviation 53.9 H (36.4-46.3) fL Plt Count 133 L D (182-369) K/mm3 MPV 9.9 (9.4-12.3) fl Neutrophils % (Manual) 81 H (40-60) % Band Neutrophils % 0 (0-10) % Lymphocytes % (Manual) 18 L (20-40) % Atypical Lymphs % 0 % Monocytes % (Manual) 1 L (2-10) % Eosinophils % (Manual) 0 L (0.7-5.8) % Basophils % (Manual) 0 L (0.1-1.2) Platelet Estimate Decreased Anisocytosis 1+ slight Macrocytosis 1+ slight Sodium 141 (136-145) mEq/L Potassium 4.4 (3.5-5.1) mEq/L Chloride 103 (98-107) mEq/L Carbon Dioxide 28 (21-32) mEq/L Anion Gap 14.4 (5-15) BUN 12 (7-18) mg/dL Creatinine 0.6 (0.55-1.02) mg/dL Est Cr Clr Drug Dosing 67.14 mL/min Estimated GFR (MDRD) > 60 (>60) mL/min BUN/Creatinine Ratio 20.0 H (14-18) Glucose 90 (80-115) mg/dL Calcium 9.4 (8.5-10.1) mg/dL Magnesium 1.9 (1.8-2.4) mg/dl Total Bilirubin 3.2 H (0.2-1.0) mg/dL AST 199 H (15-37) U/L ALT 132 H (14-59) U/L Alkaline Phosphatase 139 H (46-116) U/L Total Protein 8.5 H (6.4-8.2) g/dl Albumin 3.1 L (3.4-5.0) g/dl Globulin 5.4 gm/dL Albumin/Globulin Ratio 0.6 L (1-2) Meds: Medications Discontinued Medications Generic Name Dose Route Start Last Admin Trade Name Freq PRN Reason Stop Dose Admin Sodium Chloride 500 mls @ 1,000 mls/hr 01/13/21 22:53 01/13/21 23:03 Normal Saline IV 01/13/21 23:22 1,000 mls/hr .BOLUS ONE Administration Ondansetron HCl 4 mg 01/13/21 22:53 01/13/21 23:03 Ondansetron 4 Mg/2 Ml Sdv IVPUSH 01/13/21 22:54 4 mg ONETIME ONE Administration - Re-Assessments/Exams Free Text/Narrative Re-Assessment/Exam: 01/13/21 22:54 As above, the patient was prescribed a 7-day supply of morphine 15 mg BID past 01/09/2021, but went through the entire prescription by yesterday, and is now suffering from nausea and vomiting that she attributes to opioid withdrawal. She is not asking for antinausea medicine, rather, she is asking for additional opioids to get her through, despite having an appointment to see her PCP tomorrow morning. Her physical exam is unremarkable. She is holding an empty emesis bag. I have ordered a work-up that includes some blood tests, along with IV Zofran and IV fluid. 01/13/21 23:49 The patient's CBC is remarkable for a H/H elevated at 15.9/47.2, with thrombocytopenia of 133,000. Her CMP is remarkable for a TBil elevated at 3.2, and AST/ALT elevated at 199/132, respectively, and an alkaline phosphatase mildly elevated at 139, with the remainder of her CMP being unremarkable. Her magnesium level is within normal limits at 1.9. Review of prior labs finds that her LFTs, with the exception of an AST slightly elevated at 39, were all within normal limits on 09/13/2015. 01/14/21 00:15 Test results discussed with the patient. As above, her LFTs are somewhat elevated, however, since the last time that a chemistry panel was drawn on the patient here was in 2014, I have no way of knowing if it is acute or chronic. It may be the reason why Ms. Davis switch the patient from Percocet QID to morphine. Since the patient has an appointment to see Ms. Davis tomorrow morning, I am recommending that she mention her elevated LFTs to her at that time. I will submit a prescription for Zofran to the [facility]. Departure - Departure Time of Disposition: 00:17 Disposition: Home, Self-Care 01 Condition: Good Clinical Impression: Drug-seeking behavior, Nausea & vomiting, Opioid abuse, continuous - Discharge Information *PRESCRIPTION DRUG MONITORING PROGRAM REVIEWED*: Not Applicable *COPY OF PRESCRIPTION DRUG MONITORING REPORT IN PATIENT RONNI: Not Applicable Instructions: Nausea and Vomiting, Adult, [id number], Opioid Use Disorder Referrals: Paige Davis NP [Primary Care Provider] - Forms: ED Department Discharge Additional Instructions: You were seen in the emergency room for nausea and vomiting that developed after you finished a 7-day prescription of morphine and 3 days, requesting that we give you additional opioids. As discussed with you tonight, as in the past, it is not permissible to take a prescription opioid pain medication in excess of the dosage prescribed. If you need a stronger pain medication or higher number of pills prescribed, you need to discuss that with your single prescriber, Paige Davis NP. Work-up in the ER included several blood tests, which found that your total bilirubin is elevated at 3.2, and your liver enzymes to be moderately elevated, as well. You were treated with the antinausea medicine Zofran and some IV fluid. We recommend that you discuss your elevated liver enzymes with your PCP, Paige Davis NP, when you meet with her at your previously scheduled appointment tomorrow morning, 01/14/2021. If any other problems, please do not hesitate to return to the ER. Sepsis Event Note (ED) - Evaluation Sepsis Screening Result: No Definite Risk - Focused Exam Vital Signs: Vital Signs Temp Pulse Resp BP Pulse Ox 01/13/21 22:21 36.4 C 71 17 159/78 H 96
[2021-01-13] MEDS: Sodium Chloride 0.9% 500 ML IV ONE (23:03)
[2021-01-13] MEDS: Ondansetron 4 MG/2 ML SDV IVPUSH ONE (23:03)
== END 2021-01-14 00:27 | disposition home or self-care (01) ==
LOC: SUPCPDRO 22:18 → JD.ED 22:18
DX: F11.10 Opioid abuse, uncomplicated (principal); R11.2 Nausea with vomiting, unspecified; I10 Essential (primary) hypertension; J44.9 Chronic obstructive pulmonary disease, unspecified; Z76.5 Malingerer [conscious simulation]; Z72.0 Tobacco use; Z79.899 Other long term (current) drug therapy
CPT/HCPCS: 36415; 80053; 83735; 85007; 85027; 96374; 99283; 99284-25; J2405; J7030

== ENCOUNTER 2021-01-20 07:38 | Emergency (ER) | payer MEDICAID ==
[2021-01-20 08:49] VITALS: BP 139/78; PULSE 79
[2021-01-20] MEDS ORDERED: Ketorolac 60 MG/2 ML SDV IM ONE (09:36)
[2021-01-20] MEDS ORDERED: HYDROmorphone 0.5 MG/0.5 ML Syringe IM ONE (09:36)
--- NOTE | 2021-01-20 09:54 | EDM.PDOC ---
ED HPI GENERAL MEDICAL PROBLEM - General Chief Complaint: Back Pain or Injury Stated Complaint: BACK PAIN Time Seen by Provider: 01/20/21 09:08 Source of Information: Reports: Patient, RN Notes Reviewed History Limitations: Reports: No Limitations - History of Present Illness INITIAL COMMENTS - FREE TEXT/NARRATIVE: Patient is a 65-year-old female presenting to the emergency department with complaints of ongoing low back pain. She has a history of scoliosis with repair. She states this pain is chronic for her. She had been on Percocets in the past, however her primary care provider, Dr. Garcia, retired. She establish care with Jossy Davis NP. States she was switched from Percocet to morphine which made her quite ill. She is not currently taking anything for pain. She was seen in this emergency department approximately 4 days ago for vomiting and diarrhea. She was started on Librium for withdrawal which she is still taking. She has not followed up in the clinic as she "fired Jossy Davis ". She has not scheduled with any other provider either. She states that she does not want a prescription for narcotics as she "never wants to be on that should again ". She is requesting a "small shot of something " for her back pain. He denies any recent injuries. Denies any bowel or bladder dysfunction. Lower Back Pain Score (Numeric/FACES): 7 - Related Data Allergies Allergy/AdvReac Type Severity Reaction Status Date / Time No Known Allergies Allergy Verified 01/20/21 08:49 Home Meds: Home Meds Metoprolol Succinate [Toprol XL] 50 mg PO BID 02/28/14 [History] Albuterol [Proventil Neb Soln] 2.5 mg NEB Q3H PRN 07/12/15 [History] Budesonide/Formoterol [Symbicort 160-4.5 MCG] 2 puff INH BID 01/19/17 [History] Ondansetron [Zofran ODT] 4 mg PO Q8H PRN #20 tab.dis 01/16/21 [Rx] chlordiazePOXIDE [Librium] 25 mg PO TID #21 cap 01/16/21 [Rx] Past Medical History HEENT History: Reports: Impaired Vision Cardiovascular History: Reports: Hypertension Respiratory History: Reports: Asthma, COPD Gastrointestinal History: Reports: None 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 Neurological History: Reports: Headaches, Chronic, Migraines Psychiatric History: Reports: Addiction, Anxiety Endocrine/Metabolic History: Reports: None Hematologic History: Reports: None Immunologic History: Reports: None Oncologic (Cancer) History: Reports: None Dermatologic History: Reports: None - Infectious Disease History Infectious Disease History: Reports: None - Past Surgical History Female Surgical History: Reports: Hysterectomy Neurological Surgical History: Reports: Scoliosis Social & Family History - Family History Family Medical History: No Pertinent Family History - Tobacco Use Tobacco Use Status *Q: Current Every Day Tobacco User Years of Tobacco use: 50 Packs/Tins Daily: 1 - Caffeine Use Caffeine Use: Reports: Coffee - Recreational Drug Use Recreational Drug Use: Yes Recreational Drug Type: Reports: Oxycodone - Living Situation & Occupation Living situation: Reports: , Alone Occupation: Unemployed ED ROS GENERAL - Review of Systems Review Of Systems: See Below Constitutional: Reports: No Symptoms. Denies: Fever, Chills HEENT: Reports: No Symptoms Respiratory: Reports: No Symptoms Cardiovascular: Reports: No Symptoms Endocrine: Reports: No Symptoms GI/Abdominal: Reports: No Symptoms : Reports: No Symptoms Musculoskeletal: Reports: Back Pain Skin: Reports: No Symptoms Neurological: Reports: No Symptoms Psychiatric: Reports: No Symptoms Hematologic/Lymphatic: Reports: No Symptoms Immunologic: Reports: No Symptoms ED EXAM,LOWER BACK PAIN/INJURY - Physical Exam Exam: See Below Exam Limited By: No Limitations General Appearance: Alert, WD/WN, No Apparent Distress Respiratory/Chest: No Respiratory Distress, Lungs Clear, Normal Breath Sounds, No Accessory Muscle Use, Chest Non-Tender Cardiovascular: Normal Peripheral Pulses, Regular Rate, Rhythm, No Edema, No Gallop, No JVD, No Murmur, No Rub Back Exam: Normal Inspection, Full Range of Motion, Other (Tenderness to palpation T12-S1) Course - Vital Signs Last Recorded V/S: Last Vital Signs Temp 98.7 F 01/20/21 08:46 Pulse 79 01/20/21 08:46 Resp 16 01/20/21 08:46 BP 139/78 01/20/21 08:46 Pulse Ox 98 01/20/21 08:46 - Orders/Labs/Meds Meds: Medications Discontinued Medications Generic Name Dose Route Start Last Admin Trade Name Gee PRN Reason Stop Dose Admin Hydromorphone HCl 0.5 mg 01/20/21 09:36 01/20/21 09:51 Hydromorphone 0.5 Mg/0.5 Ml Syringe IM 01/20/21 09:37 0.5 mg ONETIME ONE Administration Ketorolac Tromethamine 60 mg 01/20/21 09:36 01/20/21 09:50 Ketorolac 60 Mg/2 Ml Sdv IM 01/20/21 09:37 60 mg ONETIME ONE Administration - Re-Assessments/Exams Free Text/Narrative Re-Assessment/Exam: Patient is a 65-year-old female presenting to the emergency department for evaluation with regards to low back pain. She has a history of scoliosis with operative repair and hardware in her spine. She has had no recent injuries. She she was on Percocet for an extended period of time and switched to morphine which made her ill, whether this was the morphine or withdrawal from Percocet is uncertain. She has been taking Librium for withdrawal symptoms and states it has been helping. She is requesting "a small shot of something" for pain although she reports she does not want a prescription for narcotics. She states she has "fired Jossy DriftToIt "but has not set up with another provider. After very long discussion with her, I did emphasize that it is necessary for her to set up care with a primary care provider for ongoing management of her pain medications as well as her withdrawal medications. Today, I am willing to give her a Dilaudid 0.5 mg IM as well as Toradol 60 mg IM. Provided her with the phone number to the clinic to set up an appointment with a primary care provider. She is in agreement with this plan. Discharge instructions as documented. Departure - Departure Time of Disposition: 09:52 Disposition: Home, Self-Care 01 Condition: Good Clinical Impression: Chronic back pain - Discharge Information *PRESCRIPTION DRUG MONITORING PROGRAM REVIEWED*: No *COPY OF PRESCRIPTION DRUG MONITORING REPORT IN PATIENT RONNI: No Instructions: Chronic Back Pain, [id number] Forms: ED Department Discharge Additional Instructions: You were seen in the emergency department today for your chronic low back pain. While in the ER, you received an injection of Dilaudid and Toradol for pain. As we discussed, chronic pain management is not generally provided through the emergency department; however, an exception was made today. I would recommend that you call to set up an appointment with a primary care provider for ongoing management of your pain as well as your withdrawal medications. The number to schedule is [phone]. You can request to be seen by the first available provider. Return to ER for any new or worsening symptoms of concern. Sepsis Event Note (ED) - Evaluation Sepsis Screening Result: No Definite Risk - Focused Exam Vital Signs: Vital Signs Temp Pulse Resp BP Pulse Ox 01/20/21 08:46 98.7 F 79 16 139/78 98
== END 2021-01-20 09:55 | disposition home or self-care (01) ==
LOC: JD.ED 07:38
DX: G89.29 Other chronic pain (principal); M54.5 Low back pain; I10 Essential (primary) hypertension; J44.9 Chronic obstructive pulmonary disease, unspecified; M41.9 Scoliosis, unspecified; Z72.0 Tobacco use; Z79.899 Other long term (current) drug therapy
CPT/HCPCS: 96372; 99283; J1170; J1885

== ENCOUNTER 2021-01-21 12:58 | Emergency (ER) | payer MEDICAID ==
[2021-01-21 13:35] VITALS: BP 131/104; PULSE 73
[2021-01-21] MEDS ORDERED: Ketorolac 60 MG/2 ML SDV IM ONE (13:44)
--- NOTE | 2021-01-21 14:00 | EDM.PDOC ---
ED HPI GENERAL MEDICAL PROBLEM - General Chief Complaint: General Stated Complaint: BACK/LEG PAIN Time Seen by Provider: 01/21/21 13:13 Source of Information: Reports: Patient History Limitations: Reports: No Limitations - History of Present Illness INITIAL COMMENTS - FREE TEXT/NARRATIVE: The patient presents with low back pain She was a patient of Dr Stokes. She was on percocet 10mg/325mg 4 times per day. She would get prescriptions filled every Tuesday. Dr Garcia retired. She went to see Kinjal Davis. Kinjal Davis put her morphine instead. This has not been working for her. She was here a few days ago and saw Dr Stern and yesterday Agatha. She called this morning multiple times looking to see if Bella one of our PAs was working. The patient was yelling on the phone and saying she was going to call the concrete handler on us. She is looking for a shot of her back and some librium to help with the withdrawal symptoms. She has no nausea or vomiting now. Onset: Gradual Duration: Day(s): Location: Reports: Back Quality: Reports: Sharp Severity: Severe Improves with: Reports: Immobilization Worsens with: Reports: Movement Context: Denies: Trauma Associated Symptoms: Reports: No Other Symptoms - Related Data Allergies Allergy/AdvReac Type Severity Reaction Status Date / Time No Known Allergies Allergy Verified 01/21/21 13:35 Home Meds: Home Meds Metoprolol Succinate [Toprol XL] 50 mg PO BID 02/28/14 [History] Albuterol [Proventil Neb Soln] 2.5 mg NEB Q3H PRN 07/12/15 [History] Budesonide/Formoterol [Symbicort 160-4.5 MCG] 2 puff INH BID 01/19/17 [History] Ondansetron [Zofran ODT] 4 mg PO Q8H PRN #20 tab.dis 01/16/21 [Rx] chlordiazePOXIDE [Librium] 25 mg PO TID #21 cap 01/16/21 [Rx] Past Medical History HEENT History: Reports: Impaired Vision Cardiovascular History: Reports: Hypertension Respiratory History: Reports: Asthma, COPD Gastrointestinal History: Reports: None DIRECTOR OF 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 Neurological History: Reports: Headaches, Chronic, Migraines Psychiatric History: Reports: Addiction, Anxiety Endocrine/Metabolic History: Reports: None Hematologic History: Reports: None Immunologic History: Reports: None Oncologic (Cancer) History: Reports: None Dermatologic History: Reports: None - Infectious Disease History Infectious Disease History: Reports: None - Past Surgical History Female Surgical History: Reports: Hysterectomy Neurological Surgical History: Reports: Scoliosis Social & Family History - Family History Family Medical History: No Pertinent Family History - Tobacco Use Tobacco Use Status *Q: Current Every Day Tobacco User Years of Tobacco use: 50 Packs/Tins Daily: 1 - Caffeine Use Caffeine Use: Reports: Coffee - Living Situation & Occupation Living situation: Reports: , Alone Occupation: Unemployed ED ROS GENERAL - Review of Systems Review Of Systems: See Below Constitutional: Reports: No Symptoms HEENT: Reports: No Symptoms Respiratory: Reports: No Symptoms Cardiovascular: Reports: No Symptoms Endocrine: Reports: No Symptoms GI/Abdominal: Reports: No Symptoms : Reports: No Symptoms Musculoskeletal: Reports: Back Pain ED EXAM, GENERAL - Physical Exam Exam: See Below Exam Limited By: No Limitations General Appearance: Alert, No Apparent Distress Ears: Normal External Exam Nose: Normal Inspection Head: Atraumatic, Normocephalic Neck: Normal Inspection Respiratory/Chest: No Respiratory Distress, Lungs Clear, Normal Breath Sounds Cardiovascular: Regular Rate, Rhythm, No Edema, No Murmur GI/Abdominal: Soft, Non-Tender, No Organomegaly, No Mass Back Exam: Other (Pain upon palpation to the lower back) Course - Vital Signs Last Recorded V/S: Last Vital Signs Temp 97.4 F 01/21/21 13:30 Pulse 73 01/21/21 13:30 Resp 18 01/21/21 13:30 BP 131/104 H 01/21/21 13:30 Pulse Ox 96 01/21/21 13:30 - Orders/Labs/Meds Meds: Medications Discontinued Medications Generic Name Dose Route Start Last Admin Trade Name Freq PRN Reason Stop Dose Admin Ketorolac Tromethamine 60 mg 01/21/21 13:44 Ketorolac 60 Mg/2 Ml Sdv IM 01/21/21 13:45 ONETIME ONE - Re-Assessments/Exams Free Text/Narrative Re-Assessment/Exam: 01/21/21 14:01 I ordered a shot of toradol. I will discharge her home. Departure - Departure Time of Disposition: 14:05 Disposition: Home, Self-Care 01 Condition: Good Clinical Impression: Chronic back pain - Discharge Information *PRESCRIPTION DRUG MONITORING PROGRAM REVIEWED*: Not Applicable *COPY OF PRESCRIPTION DRUG MONITORING REPORT IN PATIENT RONNI: Not Applicable Referrals: Paige Davis NP [Primary Care Provider] - 1 Week Additional Instructions: Follow up with Kinjal Davis or another provider. Take your medication as prescribed. Please return if you are worse. Sepsis Event Note (ED) - Evaluation Sepsis Screening Result: No Definite Risk - Focused Exam Vital Signs: Vital Signs Temp Pulse Resp BP Pulse Ox 01/21/21 13:30 97.4 F 73 18 131/104 H 96
== END 2021-01-21 14:10 | disposition home or self-care (01) ==
LOC: JD.ED 12:58
DX: G89.29 Other chronic pain (principal); M54.5 Low back pain; I10 Essential (primary) hypertension; M41.9 Scoliosis, unspecified; J44.9 Chronic obstructive pulmonary disease, unspecified; Z79.899 Other long term (current) drug therapy; Z72.0 Tobacco use
CPT/HCPCS: 96372; 99283; J1885

== ENCOUNTER 2021-01-22 00:54 | Emergency (ER) | payer MEDICAID ==
[2021-01-22 01:00] VITALS: BP 151/86; PULSE 69
--- NOTE | 2021-01-22 01:15 | EDM.PDOC ---
ED HPI GENERAL MEDICAL PROBLEM - General Chief Complaint: Back Pain or Injury Stated Complaint: TRICIA AMB Time Seen by Provider: 01/22/21 01:00 Source of Information: Reports: Patient History Limitations: Reports: No Limitations - History of Present Illness INITIAL COMMENTS - FREE TEXT/NARRATIVE: ER note from the previous day The patient presents with low back pain She was a patient of Dr Stokes. She was on percocet 10mg/325mg 4 times per day. She would get prescriptions filled every Tuesday. Dr Garcia retired. She went to see Lisa Gold. Kinjal Davis put her morphine instead. This has not been working for her. She was here a few days ago and saw Dr Stern and yesterday Agatha. She called this morning multiple times looking to see if Bella one of our PAs was working. The patient was yelling on the phone and saying she was going to call the pyrotechnic mixer on us. She is looking for a shot of her back and some librium to help with the withdrawal symptoms. She has no nausea or vomiting now. Presentation tonight the patient cannot identify any acute condition or illness but is asking for Demerol. She has chronic low back pain as noted. She has been taking narcotics apparently for a number of years and her ability to get prescriptions for opioids has become quite limited. Bilateral Lower Back Pain Score (Numeric/FACES): 10 - Related Data Allergies Allergy/AdvReac Type Severity Reaction Status Date / Time No Known Allergies Allergy Verified 01/22/21 01:00 Home Meds: Home Meds Metoprolol Succinate [Toprol XL] 50 mg PO BID 02/28/14 [History] Albuterol [Proventil Neb Soln] 2.5 mg NEB Q3H PRN 07/12/15 [History] Budesonide/Formoterol [Symbicort 160-4.5 MCG] 2 puff INH BID 01/19/17 [History] Past Medical History HEENT History: Reports: Impaired Vision Cardiovascular History: Reports: Hypertension Respiratory History: Reports: Asthma, COPD Gastrointestinal History: Reports: None SOCIAL SERVICES History: Reports: None Musculoskeletal History: Reports: Back Pain, Chronic, Neck Pain, Chronic Other Musculoskeletal History: Scoliosis, spinal fusion with Wilhelm rods many years ago. Neurological History: Reports: Headaches, Chronic, Migraines Psychiatric History: Reports: Addiction, Anxiety Endocrine/Metabolic History: Reports: None Hematologic History: Reports: None Immunologic History: Reports: None Oncologic (Cancer) History: Reports: None Dermatologic History: Reports: None - Infectious Disease History Infectious Disease History: Reports: None - Past Surgical History Female Surgical History: Reports: Hysterectomy Neurological Surgical History: Reports: Scoliosis Social & Family History - Family History Family Medical History: No Pertinent Family History - Tobacco Use Tobacco Use Status *Q: Current Every Day Tobacco User Years of Tobacco use: 50 Packs/Tins Daily: 0.5 - Caffeine Use Caffeine Use: Reports: Coffee, Tea - Recreational Drug Use Recreational Drug Use: No - Living Situation & Occupation Living situation: Reports: , Alone Occupation: Unemployed ED ROS GENERAL - Review of Systems Review Of Systems: See Below Constitutional: Reports: No Symptoms HEENT: Reports: No Symptoms Respiratory: Reports: No Symptoms Cardiovascular: Reports: No Symptoms Endocrine: Reports: No Symptoms GI/Abdominal: Reports: No Symptoms : Reports: No Symptoms Musculoskeletal: Reports: Back Pain (chronic) Skin: Reports: No Symptoms Neurological: Reports: No Symptoms Hematologic/Lymphatic: Reports: No Symptoms Immunologic: Reports: No Symptoms ED EXAM,LOWER BACK PAIN/INJURY - Physical Exam Exam: See Below Text/Narrative:: On exam the patient is alert and in no distress. She looks much older than her stated age. Head normocephalic atraumatic. PERRLA EOMI. Neck is supple without jugular venous distention. Lungs are grossly clear with equal breath sounds bilaterally. Heart is regular. Abdomen is soft and nontender. No peripheral edema cyanosis or clubbing. Neurologically the patient is grossly intact with normal strength, no motor or sensory deficit, fluent speech. Psychiatrically the patient is fixated upon getting potent opioid medications. No suicidal or homicidal ideations expressed. She is composed. Course - Vital Signs Text/Narrative:: As noted the patient does not present any acute illness or condition. She has been on opioids for a number of years and is asking for opioids at the present time. There are no overt signs of withdrawal but she is given Ativan 1 mg IM prior to discharge to ease any effects she may be feeling should she actually be withdrawing to a certain extent. She is discharged in stable condition and is to present herself to her primary care physician for further management this morning. Last Recorded V/S: Last Vital Signs Temp 36.3 C 01/22/21 00:55 Pulse 69 01/22/21 00:55 Resp 17 01/22/21 00:55 BP 151/86 H 01/22/21 00:55 Pulse Ox 98 01/22/21 00:55 Departure - Departure Time of Disposition: 01:57 Disposition: Home, Self-Care 01 Condition: Good Clinical Impression: Chronic pain syndrome, Drug-seeking behavior Opioid dependence Qualifiers: Substance use status: uncomplicated Qualified Code(s): F11.20 - Opioid dependence, uncomplicated - Discharge Information Forms: ED Department Discharge Additional Instructions: You were noted to be suffering from chronic pain and you have been taking narcotics for a number of years. As you are probably aware this kind of treatment for chronic pain syndrome is not sustainable and is deleterious to your health and wellbeing. You may be having some withdrawal and we have given you a milligram of Ativan and the muscle to be sure discomfort. There is no reason to give you a narcotic at the present time and it is recommended that you receive the care you need as an outpatient to find other ways to manage your pain and discomfort. In the event of fever or any other symptom of acute medical illness do not hesitate to return to the emergency department immediately. Sepsis Event Note (ED) - Evaluation Sepsis Screening Result: No Definite Risk - Focused Exam Vital Signs: Vital Signs Temp Pulse Resp BP Pulse Ox 01/22/21 00:55 36.3 C 69 17 151/86 H 98
[2021-01-22] MEDS ORDERED: LORazepam 2 MG/ML SDV IM ONE (01:52)
== END 2021-01-22 02:10 | disposition home or self-care (01) ==
LOC: JD.ED 00:54
DX: G89.4 Chronic pain syndrome (principal); F11.20 Opioid dependence, uncomplicated; I10 Essential (primary) hypertension; J44.9 Chronic obstructive pulmonary disease, unspecified; M41.9 Scoliosis, unspecified; Z72.0 Tobacco use; Z76.5 Malingerer [conscious simulation]; Z79.899 Other long term (current) drug therapy
CPT/HCPCS: 96372; 99284; J2060; 99282